=== PATIENT | female | born 2000 | race Caucasian/White ===

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

== ENCOUNTER 2019-10-08 14:41 | Outpatient (REF) | payer MEDICAID, SELFPAY ==
[2019-10-08 21:41] LABS: HCT 40.2 % (36.0-46.0); HGB 13.6 g/dL (12.0-15.5); Mean Corp. HGB Concentration 33.8 g/dL (32.0-36.0); Mean Corpuscular Hemoglobin 32.7 pg (27.0-33.0); Mean Corpuscular Volume 96.6 fL (80-95); Mean Platelet Volume 11.2 fL (8.0-11.0); Platelet Count 279 x1000/uL (130-400); RBC 4.16 m/cumm (4.00-5.20); RBC Distribution Width 12.1 % (11.7-14.6); White Blood Cell Count 5.67 k/cumm (4.4-10.8)
[2019-10-08 22:15] LABS: ALT 16 U/L (14-59); AST 15 U/L (15-37); Albumin 4.5 g/dL (3.4-5.0); Alkaline Phosphatase 73 U/L (46-116); Anion Gap 12.4 mmol/L (3-11); BUN 9 mg/dL (7-18); Bilirubin, Total 0.7 mg/dL (0.2-1.0); CO2 24.6 mmol/L (21.0-32.0); CREATININE 0.83 mg/dL (0.55-1.02); Calcium 9.6 mg/dL (8.5-10.1); Chloride 105 mmol/L (98-107); Glucose 79 mg/dL (74-106); Sodium 142 mmol/L (136-145); Total Protein 7.4 g/dL (6.4-8.2)
[2019-10-08 22:16] LABS: ESR 10 mm/hr (0-20)
[2019-10-10 09:08] LABS: Rheumatoid Factor <7.5 IU/mL (<12.5)
[2019-10-10 11:45] LABS: Cyclic Citrullinated Peptide <2.5 U/mL (<5.0)
== END 2019-10-08 15:01 ==
LOC: NCHCN 14:41
PROVIDERS: PCP Nurse Practitioner Family; Visit Provider Family Medicine
DX: Z82.61 Family history of arthritis (principal)
CPT/HCPCS: 80053; 85027; 85652; 86200; 86431

== ENCOUNTER 2020-07-28 18:16 | Outpatient (REF) | payer MEDICAID, SELFPAY ==
[2020-07-31 02:38] LABS: HSV 1 PCR, Varies Negative (Negative); HSV 2 PCR, Varies Negative (Negative); Herpes Source PERIANAL
== END 2020-07-28 18:36 ==
LOC: NCHCN 18:16
PROVIDERS: PCP Family Medicine; Visit Provider Family Medicine
DX: R21 Rash and other nonspecific skin eruption (principal); F41.1 Generalized anxiety disorder
CPT/HCPCS: 87529; 86695; 86696

== ENCOUNTER 2020-08-19 10:09 | Outpatient (REF) | payer MEDICAID, SELFPAY ==
--- NOTE | 2020-08-19 09:00 | PAPFT_PTH ---
PATIENT: Shira Cabrales LOC: [facility] U#:[id number] AGE/SX: 20/F ROOM: RE08/19/[address]: Nataly Davis : 2000 BED: DIS: 08/19/2020 SPEC #: [id number] RECD: 08/24/20 13:00 STATUS: ADRIAN RELoli #: [id number] SILAS: 08/19/20 09:[address]: Nataly Davis DEPT: [facility] Cytology RECD BY: Serena Carey Tissues: 1 - CX/ENDOCX FOR PAP SMEARS Procedures: PAP THIN PREP/[facility] Screening Comments: [id number] (CHLAMYDIA/GC)
[2020-08-25 15:09] LABS: Chlamydia Result Negative (Negative); GC Result Negative (Negative)
== END 2020-08-19 10:29 ==
LOC: NCHCN 10:09
PROVIDERS: PCP Family Medicine; Visit Provider Family Medicine
DX: Z11.3 Encounter for screening for infections with a predominantly sexual mode of transmission (principal); Z12.4 Encounter for screening for malignant neoplasm of cervix
CPT/HCPCS: 87491; 87591; 88142

== ENCOUNTER 2021-03-25 15:49 | Outpatient (REF) | payer OTHER, MEDICAID, SELFPAY | END 2021-03-25 15:50 | disposition home or self-care (01) | LOC: NCHCN 15:49 | PROVIDERS: PCP Family Medicine; Visit Provider Registered Nurse | DX: R35.0 Frequency of micturition (principal); A56.2 Chlamydial infection of genitourinary tract, unspecified | CPT/HCPCS: 87077; 87086; 87186; 87480; 87510; 87660 ==

== ENCOUNTER 2021-05-03 16:00 | Outpatient (REF) | payer OTHER, MEDICAID, SELFPAY ==
[2021-05-04 15:40] LABS: Chlamydia Result Negative (Negative); GC Result Negative (Negative)
== END 2021-05-03 16:01 | disposition home or self-care (01) ==
LOC: NCHCN 16:00
PROVIDERS: PCP Family Medicine; Visit Provider Family Medicine
DX: R31.9 Hematuria, unspecified (principal)
CPT/HCPCS: 87077; 87491; 87591; 87086; 87186

== ENCOUNTER 2021-06-10 17:01 | Outpatient (REF) | payer OTHER, SELFPAY ==
[2021-06-14 15:34] LABS: Chlamydia Result Negative (Negative); GC Result Negative (Negative)
== END 2021-06-10 17:02 | disposition home or self-care (01) ==
LOC: LBN 17:01
PROVIDERS: PCP Family Medicine; Visit Provider Nurse Practitioner Family
DX: R30.0 Dysuria (principal); Z11.3 Encounter for screening for infections with a predominantly sexual mode of transmission
CPT/HCPCS: 87077; 87491; 87591; 87086; 87186

== ENCOUNTER 2021-06-24 14:30 | Outpatient (REF) | payer OTHER, SELFPAY | END 2021-06-24 14:31 | disposition home or self-care (01) | LOC: LBN 14:30 | PROVIDERS: PCP Family Medicine; Visit Provider Nurse Practitioner Family | DX: N39.0 Urinary tract infection, site not specified (principal); R30.0 Dysuria | CPT/HCPCS: 87086 ==

== ENCOUNTER 2021-11-08 11:37 | Outpatient (REF) | payer MEDICAID, SELFPAY ==
--- NOTE | 2021-11-08 11:30 | PAPFT_PTH ---
PATIENT: Shira Cabrales LOC: [facility] U#:[id number] AGE/SX: 21/ ROOM: RE11/08/[address]: MARCO Mercado : 2000 BED: DIS: 11/08/2021 SPEC #: [id number] RECD: 11/08/21 18:17 STATUS: ADRIAN REQ #: [id number] SILAS: 11/08/21 11:[address]: Areli Dinero DEPT: [facility] Cytology RECD BY: Serena Carey ENTERED: 11/08/21 18:18 SP TYPE: PAPFT OTHR DR: Nataly Davis Tissues: 1 - CX/ENDOCX FOR PAP SMEARS Procedures: PAP THIN PREP/[facility] Screening Comments: [id number]
== END 2021-11-08 11:38 | disposition home or self-care (01) ==
LOC: LBN 11:37
PROVIDERS: PCP Family Medicine; Visit Provider Nurse Practitioner Family
DX: R30.0 Dysuria (principal); Z12.4 Encounter for screening for malignant neoplasm of cervix
CPT/HCPCS: 87077; 88142; 87086; 87186

== ENCOUNTER 2021-11-08 15:28 | Outpatient (REF) | payer MEDICAID, SELFPAY ==
--- OUTSIDE RECORDS SUMMARY | 2021-11-08 15:30 | XMS_ITS | CCD ---
:2000 Author Care Team Providers Name Role Phone Rosa M CHAMPION Attending Physician Unavailable Vital Signs Unknown or Not Available. Allergies Allergy Code Allergy Type Reaction Status No Known Allergies 0 No known allergies Act yrn Procedures Unknown or Not Available. History of Immunizations Unknown or Not Available. Problems Unknown or Not Available. Results [facility] COVID RHEONIX* - Collect Date/Maco e: 08/22/2021 07:50 Test Name Code Test Result Test Units Test Ref Range SOURCE= Anterior nasal N/A Tier- RANDOM STAFF N/A SARS COV2 RNA: 17314-2 NEGATIVE N/A REFERENCE RAN GE: NEGAT Active Medications Unknown or Not Available. Medications Administered During Visit Unknown or Not Available. Encounters Encounter Diagnosis Diagnosis Code Start Date CONTACT WITH AND SUSPECTED EXPOSURE TO COVID-19 [id number] 08/22/2021 Social History Smoking Status Code Start Date End Date Never smoker [id number] Patient Decision Aids Unknown or Not Available. Discharge Instructions You were admitted to [facility] on 08/22/2021 21:17 with a principal diagnosis of Contact with and (suspected ) exposure to COVID-19 You had the following tests done: [facility] COVID RHEONIX* You were discharged from [facility] on 08/22/2021 21:17 Should you have any questions prior to d ischarge, please contact a member of your healthcare team. If you have left the spital and have any questions, please contact your primary care physician. Chief Complaint and Reason For Visit Unknown or Not Available. Function Status Unknown or Not Available. Plan of Care Unknown or Not Available. Referral/Transition of Care Unknown or Not Available.
== END 2021-11-08 15:29 | disposition home or self-care (01) ==
LOC: LBN 15:28
PROVIDERS: PCP Family Medicine; Visit Provider Family Medicine

== ENCOUNTER 2022-01-19 14:56 | Outpatient (REF) | payer MEDICAID, SELFPAY ==
[2022-01-21 15:02] LABS: Chlamydia Result Negative (Negative); GC Result Negative (Negative)
== END 2022-01-19 14:57 | disposition home or self-care (01) ==
LOC: NCHCN 14:56
PROVIDERS: PCP Family Medicine; Visit Provider Internal Medicine
DX: Z11.3 Encounter for screening for infections with a predominantly sexual mode of transmission (principal)
CPT/HCPCS: 87491; 87591; 82043; 82570

== ENCOUNTER 2022-02-17 16:21 | Outpatient (REF) | payer MEDICAID, SELFPAY | END 2022-02-17 16:22 | disposition home or self-care (01) | LOC: LBN 16:21 | PROVIDERS: PCP Family Medicine; Visit Provider Nurse Practitioner Family | DX: R30.0 Dysuria (principal) | CPT/HCPCS: 87086 ==

== ENCOUNTER 2023-02-24 18:16 | Emergency (ER) | payer MEDICAID, SELFPAY ==
[2023-02-24 18:21] VITALS: BP 131/64; PULSE 85; RESP 16; TEMP 36.9; O2SAT 100
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
[2023-02-24 19:22] LABS: Abs Immature Grans 0.09 10^3/uL (0.0-0.06); Absolute Basophil Count 0.08 10^3/uL (0.0-0.2); Absolute Eosinophil Count 0.16 10^3/uL (0.0-0.7); Absolute Lymphocyte Count 2.49 10^3/uL (1.2-3.4); Absolute Monocyte Count 0.94 10^3/uL (0.1-0.8); Absolute Neutrophil Count 4.17 10^3/uL (1.2-6.7); HCT 36.5 % (36.0-46.0); HGB 12.5 g/dL (11.2-15.7); Immature Grans % 1.1; Lymphocytes % 31.4; MCHC 34.2 % (32.0-36.0); MCV 93 fL (80-95); MPV 9.6 fL (8.0-11.0); Monocytes % 11.9; Neutrophils % 52.6; Platelet Count 269 10^3/uL (130-400); RBC 3.91 10^6/uL (3.93-5.22); RDW 11.3 % (11.7-14.6); RDW-SD 38.4 fL; WBC 7.93 10^3/uL (4.4-10.8)
[2023-02-24 21:07] VITALS: BP 103/57
== END 2023-02-24 21:10 | disposition home or self-care (01) ==
PROVIDERS: Emergency Provider Nurse Practitioner Acute Care; PCP Family Medicine
DX: O99.341 Other mental disorders complicating pregnancy, first trimester (principal)
CPT/HCPCS: 86900; 86901; 99285; 84702; 85025

== ENCOUNTER 2023-03-21 10:07 | Outpatient (REF) | payer MEDICAID, SELFPAY ==
--- OUTSIDE RECORDS SUMMARY | 2023-03-22 10:07 | XMS_ITS | CCD ---
Author Name Unknown Address [address] [place] [address] [phone] Organization Unknown Address [address] [place] [address] [phone] Care Team Providers Care Fresh Work Wrapper Layer Name Role Phone VINCENZO CHAMPION Attending Physician [phone] Vital Signs Unknown or Not Available. Allergies Allergy Code Allergy Type Reaction Status No Known Allergies 0 No known allergies Active Procedures Unknown or Not Available. History of Immunizations Unknown or Not Available. Problems Unknown or Not Available. Results [facility] COVID RHEONIX* - Noreen ect Date/Time: 08/22/2021 07:50 Test Name Code Test Result Test Units Test Ref Rang e SOURCE= Anterior nasal N/A Tier- RANDOM STAFF N/A SARS COV2 RNA: 95034-0 NEGATIVE N/A REFERENCE RANGE: NEGAT Active Medications Unknown or Not Available. Medications Administered During Visit Unknown or Not Available. Encounters Encounter Diagnosis Diagnosis Code Start Date Exposure to SARS-CoV-2 [id number] Social History Smoking Status Code Start Date End Date Never smoker [id number] Patient Decision Aids Unknown or Not Available. Discharge Instructions You were admitted to [facility] on 08/22/2021 21:17 with a principal diagnosis of Contact with and (suspected) exposure to COVID-19 You had the following tests done:[facility] COVID RHEONIX* You were discharged from [facility] on 08/22/2021 21:17 Should you have any questions prior to discharge, please contact a member of your healthcare team. If you have left the hospital and have any questions, please contact your primary care physician. Chief Complaint and Reason For Visit Unknown or Not Available. Function Status Unknown or Not Available. Plan of Care Unknown or Not Available. Referral/Transition of Care Unknown or Not Available.
--- OUTSIDE RECORDS SUMMARY | 2023-03-22 10:07 | XMS_ITS | CCD ---
Author Name Unknown Address [address] [place] [address] [phone] Organization Unknown Address [address] [place] [address] [phone] Care Team Providers Care Staff Electronic Warfare Officer Name Role Phone VINCENZO CHAMPION Attending Physician [phone] Vital Signs Unknown or Not Available. Allergies Allergy Code Allergy Type Reaction Status No Known Allergies 0 No known allergies Active Procedures Unknown or Not Available. History of Immunizations Unknown or Not Available. Problems Unknown or Not Available. Results [facility] COVID RHEON[facility]* - Noreen ect Date/Time: 10/02/2021 15:30 Test Name Code Test Result Test Units Test Ref Rang e Tier- STAFF PRIORITY N/A SARS COV2 RNA: 31315-3 NEGATIVE N/A REFERENCE RANGE: NEGAT Active Medications Unknown or Not Available. Medications Administered During Visit Unknown or Not Available. Encounters Encounter Diagnosis Diagnosis Code Start Date Exposure to SARS-CoV-2 [id number] Social History Smoking Status Code Start Date End Date Never smoker [id number] Patient Decision Aids Unknown or Not Available. Discharge Instructions You were admitted to [facility] on 10/02/2021 08:42 with a principal diagnosis of Contact with and (suspected) exposure to COVID-19 You had the following tests done:[facility] COVID RHEONIX* You were discharged from [facility] on 10/02/2021 08:42 Should you have any questions prior to [...]
--- OUTSIDE RECORDS SUMMARY | 2023-03-22 10:07 | XMS_ITS | CCD ---
Author Name Unknown Address [address] [place] [address] [phone] Organization Unknown Address [address] [place] [address] [phone] Care Team Providers Care Plywood Layup Line Back Feeder Name Role Phone VINCENZO CHAMPION Attending Physician [phone] Vital Signs Unknown or Not Available. Allergies Allergy Code Allergy Type Reaction Status No Known Allergies 0 No known allergies Active Procedures Unknown or Not Available. History of Immunizations Unknown or Not Available. Problems Unknown or Not Available. Results [facility] RHE[facility]* - Noreen ect Date/Time: 09/30/2021 11:54 Test Name Code Test Result Test Units Test Ref Rang e Tier- STAFF PRIORITY N/A SARS COV2 RNA: 99803-4 NEGATIVE N/A REFERENCE RANGE: NEGAT Active Medications Unknown or Not Available. Medications Administered During Visit Unknown or Not Available. Encounters Encounter Diagnosis Diagnosis Code Start Date Exposure to SARS-CoV-2 [id number] Social History Smoking Status Code Start Date End Date Never smoker [id number] Patient Decision Aids Unknown or Not Available. Discharge Instructions You were admitted to [facility] on 09/30/2021 16:09 with a principal diagnosis of Contact with and (suspected) exposure to COVID-19 You had the following tests done:[facility] RHEONIX* You were discharged from [facility] on 09/30/2021 16:09 Should you have any questions prior to [...]
--- OUTSIDE RECORDS SUMMARY | 2023-03-22 10:07 | XMS_ITS | CCD ---
Author Name Unknown Address [address] [place] [address] [phone] Organization Unknown Address [address] [place] [address] [phone] Care Team Providers Care Glue Sprayer Name Role Phone VINCENZO CHAMPION Attending Physician [phone] Vital Signs Unknown or Not Available. Allergies Allergy Code Allergy Type Reaction Status No Known Allergies 0 No known allergies Active Procedures Unknown or Not Available. History of Immunizations Unknown or Not Available. Problems Unknown or Not Available. Results [facility] COVID RHEONIX* - Noreen ect Date/Time: 11/12/2021 09:48 Test Name Code Test Result Test Units Test Ref Rang e [facility]- 16081-2 STAFF PRIORITY N/A SARS COV2 RNA: 38227-0 NEGATIVE N/A REFERENCE RANGE: NEGAT Active Medications Unknown or Not Available. Medications Administered During Visit Unknown or Not Available. Encounters Encounter Diagnosis Diagnosis Code Start Date CONTACT WITH AND SUSPECTED EXPOSURE TO COVID-19 D13247 11/12/2021 Social History Smoking Status Code Start Date End Date Never smoker [id number] Patient Decision Aids Unknown or Not Available. Discharge Instructions You were admitted to [facility] on 11/12/2021 10:24 with a principal diagnosis of Contact with and (suspected) exposure to COVID-19 You had the following tests done:[facility] COVID RHEONIX* You were discharged from [facility] on 11/12/2021 10:24 Should you have any questions prior to [...]
--- OUTSIDE RECORDS SUMMARY | 2023-03-22 10:08 | XMS_ITS | CCD ---
Author Name Unknown Address [address] [place] [address] [phone] Organization Unknown Address [address] [place] [address] [phone] Care Team Providers Care Sales Utility Representative Name Role Phone VINCENZO CHAMPION Attending Physician [phone] Vital Signs Unknown or Not Available. Allergies Allergy Code Allergy Type Reaction Status No Known Allergies 0 No known allergies Active Procedures Unknown or Not Available. History of Immunizations Unknown or Not Available. Problems Unknown or Not Available. Results [facility] COVID RHEONIX* - Noreen ect Date/Time: 12/29/2021 11:00 Test Name Code Test Result Test Units Test Ref Rang e Tier- 90959-4 STAFF EXPOSURE N/A SARS COV2 RNA: 42720-9 NEGATIVE N/A REFERENCE RANGE: NEGAT Active Medications Unknown or Not Available. Medications Administered During Visit Unknown or Not Available. Encounters Encounter Diagnosis Diagnosis Code Start Date Exposure to SARS-CoV-2 [id number] Social History Smoking Status Code Start Date End Date Never smoker [id number] Patient Decision Aids Unknown or Not Available. Discharge Instructions You were admitted to [facility] on 12/29/2021 08:45 with a principal diagnosis of Contact with and (suspected) exposure to COVID-19 You had the following tests done:[facility] RHEONIX* You were discharged from [facility] on 12/29/2021 08:45 Should you have any questions prior to [...]
--- OUTSIDE RECORDS SUMMARY | 2023-03-22 10:08 | XMS_ITS | CCD ---
Author Name Unknown Address [address] [place] [address] [phone] Organization Unknown Address [address] [place] [address] [phone] Care Team Providers Care Sports Official Name Role Phone VINCENZO CHAMPION Attending Physician [phone] Vital Signs Unknown or Not Available. Allergies Allergy Code Allergy Type Reaction Status No Known Allergies 0 No known allergies Active Procedures Unknown or Not Available. History of Immunizations Unknown or Not Available. Problems Unknown or Not Available. Results [facility] COVID RHEONIX* - Noreen ect Date/Time: 01/04/2022 11:03 Test Name Code Test Result Test Units Test Ref Rang e [facility]- 21796-2 STAFF PRIORITY N/A SARS COV2 RNA: 69412-8 POSITIVE N/A REFERENCE RANGE: NEGAT Active Medications Unknown or Not Available. Medications Administered During Visit Unknown or Not Available. Encounters Encounter Diagnosis Diagnosis Code Start Date COVID-19 [id number] 01/04/2022 Social History Smoking Status Code Start Date End Date Never smoker [id number] Patient Decision Aids Unknown or Not Available. Discharge Instructions You were admitted to [facility] on 01/04/2022 16:43 with a principal diagnosis of COVID-19 You had the following tests done:[facility] COVID RHEONIX* You were discharged from [facility] on 01/04/2022 16:43 Should you have any questions prior to [...]
--- OUTSIDE RECORDS SUMMARY | 2023-03-22 10:08 | XMS_ITS | CCD ---
Author Name Unknown Address [address] [place] [address] [phone] Organization Unknown Address [address] [place] [address] [phone] Care Team Providers Care Seismograph Chief Name Role Phone MARIA ELENA HOLBROOK Attending Physician [phone] Vital Signs Unknown or Not Available. Allergies Allergy Code Allergy Type Reaction Status No Known Allergies 0 No known allergies Active Procedures Unknown or Not Available. History of Immunizations Unknown or Not Available. Problems Unknown or Not Available. Results HCG QUANTITATIVE WHOLE MOLEC ULE* - Collect Date/Time: 01/10/2023 14:08 Test Name Code Test Result Test Units Test Ref Rang e HCG, total+Beta subs 22200-1 12 N/A Active Medications Unknown or Not Available. Medications Administered During Visit Unknown or Not Available. Encounters Encounter Diagnosis Diagnosis Code Start Date [id number] 01/10/2023 Social History Smoking Status Code Start Date End Date Never smoker [id number] Patient Decision Aids Unknown or Not Available. Discharge Instructions You were admitted to [facility] on 01/10/2023 19:50 with a principal diagnosis of state, incidental You had the following tests done:HCG QUANTITATIVE WHOLE MOLECULE* You were discharged from [facility] on 01/10/2023 19:50 Should you have any questions prior to [...]
--- OUTSIDE RECORDS SUMMARY | 2023-03-22 10:09 | XMS_ITS | CCD ---
Author Name Unknown Address [address] [place] [address] [phone] Organization Unknown Address [address] [place] [address] [phone] Care Team Providers Care Electrical System Specialist Name Role Phone ARACELI CARROLL Attending Physician [phone] Vital Signs Unknown or Not Available. Allergies Allergy Code Allergy Type Reaction Status No Known Allergies 0 No known allergies Active Procedures Unknown or Not Available. History of Immunizations Unknown or Not Available. Problems Unknown or Not Available. Results TEST QUAL (URINE) - Collect Date/Time: 02/14/2023 14:00 Test Name Code Test Result Test Units Test Ref Rang e TEST 2105-11 POSITIVE N/A Active Medications Unknown or Not Available. Medications Administered During Visit Unknown or Not Available. Encounters Encounter Diagnosis Diagnosis Code Start Date detection examination [id number] 02/14/2023 Social History Smoking Status Code Start Date End Date Never smoker [id number] Patient Decision Aids Unknown or Not Available. Discharge Instructions You were admitted to [facility] on 02/14/2023 13:55 with a principal diagnosis of Encounter for test, result unknown You had the following tests done: TEST QUAL (URINE) You were discharged from [facility] on 02/14/2023 13:55 Should you have any questions prior to [...]
== END 2023-03-21 10:08 | disposition home or self-care (01) ==
LOC: LBN 10:07
PROVIDERS: PCP Family Medicine; Visit Provider Otolaryngology
DX: H66.001 Acute suppurative otitis media without spontaneous rupture of ear drum, right ear (principal); H72.91 Unspecified perforation of tympanic membrane, right ear
CPT/HCPCS: 87077; 87070; 87186

== ENCOUNTER 2023-04-05 02:40 | Outpatient (CLI) | payer MEDICAID, SELFPAY ==
[2023-04-05 14:20] LABS: Panorama Kit Sent via Fed Ex
[2023-04-05 14:26] LABS: Abs Immature Grans 0.08 10^3/uL (0.0-0.06); Absolute Basophil Count 0.06 10^3/uL (0.0-0.2); Absolute Lymphocyte Count 2.35 10^3/uL (1.2-3.4); Absolute Monocyte Count 1.09 10^3/uL (0.1-0.8); Absolute Neutrophil Count 5.55 10^3/uL (1.2-6.7); Basophils % 0.6; Eosinophils % 2.1; HCT 35.7 % (36.0-46.0); HGB 12.5 g/dL (11.2-15.7); Immature Grans % 0.9; Lymphocytes % 25.2; MCH 32.6 pg (27.0-33.0); MCV 93 fL (80-95); MPV 10.2 fL (8.0-11.0); Monocytes % 11.7; Neutrophils % 59.5; Platelet Count 225 10^3/uL (130-400); RBC 3.83 10^6/uL (3.93-5.22); RDW-SD 40.8 fL; WBC 9.33 10^3/uL (4.4-10.8)
[2023-04-05 14:55] LABS: TSH (W/Ref FT4) 0.18 uIU/mL (0.36-3.74)
[2023-04-05 15:14] LABS: FREE T4 1.25 ng/dL (0.76-1.46)
[2023-04-06 10:22] LABS: Varicella IgG Antibody Positive (See Note)
[2023-04-06 10:25] LABS: Rubella IgG Ab (UVM) Positive (See Note)
[2023-04-06 12:40] LABS: Hepatitis C Ab w Rflx HCV PCR Negative (Negative)
[2023-04-06 13:06] LABS: HIV-1/2 Ag & Ab Screen Negative (Negative)
[2023-04-06 13:57] LABS: Hepatitis B Surface Ag Negative (Negative)
[2023-04-07 14:36] LABS: Syphilis IgG w/Reflex Nonreactive (Nonreactive)
[2023-04-24 18:54] LABS: Result Summary NEGATIVE; Specimen WB Whole Blood
== END 2023-04-05 02:41 | disposition home or self-care (01) ==
LOC: LBO 02:41
PROVIDERS: PCP Family Medicine; Visit Provider Advanced Practice Midwife
DX: Z34.01 Encounter for supervision of normal first pregnancy, first trimester (principal)
CPT/HCPCS: 36415; 81220; 81222; 86787; 86803; 86850; 86900; 86901; 87340; 87389; 84439; 84443; 85025; 86762; 86780

== ENCOUNTER 2023-04-05 15:24 | Outpatient (REF) | payer MEDICAID, SELFPAY ==
[2023-04-05 17:52] LABS: *AMPHETAMINES SCREEN URINE Negative (Negative); *BARBITURATES SCREEN URINE Negative (Negative); *BENZODIAZEPINES SCREEN URINE Negative (Negative); Cannabinoids THC Negative (Negative); Cocaine Screen,Urine Negative (Negative); METHADONE URINE SCREEN Negative (Negative); OPIATES URINE SCREEN Negative (Negative)
[2023-04-05 17:53] LABS: Tricyclic Antidepressants Negative (Negative)
[2023-04-14 18:01] LABS: Buprenorphine Negative ng/mL (Cutoff: 5.0); Norbuprenorphine Negative ng/mL (Cutoff: 2.5)
== END 2023-04-05 15:25 | disposition home or self-care (01) ==
LOC: LBN 15:24
PROVIDERS: PCP Family Medicine; Visit Provider Advanced Practice Midwife
DX: Z34.91 Encounter for supervision of normal pregnancy, unspecified, first trimester (principal)
CPT/HCPCS: 80307; 80348; 87086

== ENCOUNTER → 2023-05-19 00:24 | Outpatient (CLI) | payer MEDICAID, SELFPAY ==
--- OUTSIDE RECORDS SUMMARY | 2023-05-19 00:32 | XMS_ITS | CCD ---
Author Name Unknown Address [address] [place] [address] [phone] Organization Unknown Address [address] [place] [address] [phone] Care Team Providers Care Tax Evaluator Name Role Phone VINCENZO CHAMPION Attending Physician [phone] Vital Signs Unknown or Not Available. Allergies Allergy Code Allergy Type Reaction Status No Known Allergies 0 No known allergies Active Procedures Unknown or Not Available. History of Immunizations Unknown or Not Available. Problems Unknown or Not Available. Results [facility] COVID RHEONIX* - Noreen ect Date/Time: 11/15/2021 10:45 Test Name Code Test Result Test Units Test Ref Rang e Tier- 34813-4 STAFF PRIORITY N/A SARS COV2 RNA: 25379-9 NEGATIVE N/A REFERENCE RANGE: NEGAT Active Medications Unknown or Not Available. Medications Administered During Visit Unknown or Not Available. Encounters Encounter Diagnosis Diagnosis Code Start Date Exposure to SARS-CoV-2 [id number] Social History Smoking Status Code Start Date End Date Never smoker [id number] Patient Decision Aids Unknown or Not Available. Discharge Instructions You were admitted to [facility] on 11/15/2021 19:27 with a principal diagnosis of Contact with and (suspected) exposure to COVID-19 You had the following tests done:[facility] COVID RHEONIX* You were discharged from [facility] on 11/15/2021 19:27 Should you have any questions prior to [...]
--- OUTSIDE RECORDS SUMMARY | 2023-05-19 00:32 | XMS_ITS | CCD ---
Author Name Unknown Address [address] [place] [address] [phone] Organization Unknown Address [address] [place] [address] [phone] Care Team Providers Care Support Services Tech Name Role Phone VINCENZO CHAMPION Attending Physician [phone] Vital Signs Unknown or Not Available. Allergies Allergy Code Allergy Type Reaction Status No Known Allergies 0 No known allergies Active Procedures Unknown or Not Available. History of Immunizations Unknown or Not Available. Problems Unknown or Not Available. Results [facility] COVID RHEONIX* - Noreen ect Date/Time: 11/12/2021 09:48 Test Name Code Test Result Test Units Test Ref Rang e [facility]- 37066-9 STAFF PRIORITY N/A SARS COV2 RNA: 82914-8 NEGATIVE N/A REFERENCE RANGE: NEGAT Active Medications Unknown or Not Available. Medications Administered During Visit Unknown or Not Available. Encounters Encounter Diagnosis Diagnosis Code Start Date CONTACT WITH AND SUSPECTED EXPOSURE TO COVID-19 [id number] 11/12/2021 Social History Smoking Status Code Start Date End Date Never smoker [id number] Patient Decision Aids Unknown or Not Available. Discharge Instructions You were admitted to [facility] on 11/12/2021 10:24 with a principal diagnosis of Contact with and (suspected) exposure to COVID-19 You had the following tests done:[facility]OTT COVID RHEONIX* You were discharged from [facility] on 11/12/2021 10:24 Should you [...]
--- OUTSIDE RECORDS SUMMARY | 2023-05-19 00:32 | XMS_ITS | CCD ---
Author Name Unknown Address [address] [place] [address] [phone] Organization Unknown Address [address] [place] [address] [phone] Care Team Providers Care Equipment Scheduler Name Role Phone VINCENZO CHAMPION Attending Physician [phone] Vital Signs Unknown or Not Available. Allergies [...] Tier- RANDOM STAFF N/A SARS COV2 RNA: 27647-4 NEGATIVE N/A REFERENCE RANGE: NEGAT Active Medications Unknown or Not Available. Medications Administered During Visit Unknown or Not Available. Encounters Encounter Diagnosis Diagnosis Code Start Date Exposure to SARS-CoV-2 [id number] Social History Smoking Status Code Start Date End Date Never smoker [id number] Patient Decision Aids Unknown or Not Available. Discharge Instructions You were admitted to [facility] on 08/22/2021 21:17 with a principal diagnosis of Contact with and (suspected) exposure to COVID-19 You had the following tests done:[facility]OTT COVID RHEONIX* You were discharged from [facility] on 08/22/2021 21:17 Should you have [...]
--- OUTSIDE RECORDS SUMMARY | 2023-05-19 00:32 | XMS_ITS | CCD ---
Author Name Unknown Address [address] [place] [address] [phone] Organization Unknown Address [address] [place] [address] [phone] Care Team Providers Care Security Project Manager Name Role Phone VINCENZO CHAMPION Attending Physician [phone] Vital Signs Unknown or Not Available. Allergies [...] Tier- STAFF PRIORITY N/A SARS COV2 RNA: 39465-8 NEGATIVE N/A REFERENCE RANGE: NEGAT Active Medications Unknown or Not Available. Medications Administered During Visit Unknown or Not Available. Encounters Encounter Diagnosis Diagnosis Code Start Date Exposure to SARS-CoV-2 [id number] Social History Smoking Status Code Start Date End Date Never smoker [id number] Patient Decision Aids Unknown or Not Available. Discharge Instructions You were admitted to [facility] on 09/30/2021 16:09 with a principal diagnosis of Contact with and (suspected) exposure to COVID-19 You had the following tests done:E[facility]IOTT COVID RHEONIX* You were discharged from [facility] on 09/30/2021 16:09 Should you [...]
--- OUTSIDE RECORDS SUMMARY | 2023-05-19 00:33 | XMS_ITS | CCD ---
Author Name Unknown Address [address] [place] [address] [phone] Organization Unknown Address [address] [place] [address] [phone] Care Team Providers Care Cloud Subject Matter Expert Name Role Phone VINCENZO CHAMPION Attending Physician [phone] Vital Signs Unknown or Not Available. Allergies Allergy Code Allergy Type Reaction Status No Known Allergies 0 No known allergies Active Procedures Unknown or Not Available. History of Immunizations Unknown or Not Available. Problems Unknown or Not Available. Results [facility] COVID RHEONIX* - Noreen ect Date/Time: 12/29/2021 11:00 Test Name Code Test Result Test Units Test Ref Rang e Tier- 94656-7 STAFF EXPOSURE N/A SARS COV2 RNA: 08077-8 NEGATIVE N/A REFERENCE RANGE: NEGAT Active Medications Unknown or Not Available. Medications Administered During Visit Unknown or Not Available. Encounters Encounter Diagnosis Diagnosis Code Start Date Exposure to SARS-CoV-2 766473100 Social History Smoking Status Code Start Date End Date Never smoker 891032375 Patient Decision Aids Unknown or Not Available. Discharge Instructions You were admitted to [facility] on 12/29/2021 08:45 with a principal diagnosis of Contact with and (suspected) exposure to COVID-19 You had the following tests done:ELLIOTT COVID RHEONIX* You were discharged from [facility] on 12/29/2021 08:45 Should you have [...]
--- OUTSIDE RECORDS SUMMARY | 2023-05-19 00:33 | XMS_ITS | CCD ---
Author Name Unknown Address [address] [place] [address] [phone] Organization Unknown Address [address] [place] [address] [phone] Care Team Providers Care Teacher Private Name Role Phone VINCENZO CHAMPION Attending Physician [phone] Vital Signs Unknown or Not Available. Allergies Allergy Code Allergy Type Reaction Status No Known Allergies 0 No known allergies Active Procedures Unknown or Not Available. History of Immunizations Unknown or Not Available. Problems Unknown or Not Available. Results [facility] COVID RHEONIX* - Noreen ect Date/Time: 01/04/2022 11:03 Test Name Code Test Result Test Units Test Ref Rang e [facility]- 94074-7 STAFF PRIORITY N/A SARS COV2 RNA: 83572-2 POSITIVE N/A REFERENCE RANGE: NEGAT Active Medications Unknown or Not Available. Medications Administered During Visit Unknown or Not Available. Encounters Encounter Diagnosis Diagnosis Code Start Date COVID-19 [id number] 01/04/2022 Social History Smoking Status Code Start Date End Date Never smoker 021202995 Patient Decision Aids Unknown or Not Available. Discharge Instructions You were admitted to [facility] on 01/04/2022 16:43 with a principal diagnosis of COVID-19 You had the following tests done:E[facility]IOTT COVID RHEONIX* You were discharged from [facility] on 01/04/2022 16:43 Should you have [...]
--- OUTSIDE RECORDS SUMMARY | 2023-05-19 00:33 | XMS_ITS | CCD ---
Author Name Unknown Address [address] [place] [address] [phone] Organization Unknown Address [address] [place] [address] [phone] Care Team Providers Care Combination Machine Tender Name Role Phone SHERON MARIA ELENA Rosa M Attending Physician [phone] Vital Signs Unknown or Not Available. Allergies Allergy Code Allergy Type Reaction Status No Known Allergies 0 No known allergies Active Procedures Unknown or Not Available. History of Immunizations Unknown or Not Available. Problems Unknown or Not Available. Results CULT URINE CULTURE* - Colle t Date/Time: 11/03/2022 14:35 Test Name Code Test Result Test Units Test Ref Rang e COLLECTION MODE: 39164-5 CLEAN CATCH N/A URINALYSIS WITH REFLEX CULT IF POSITIVE* - Collect Date/Time: 11/03/2022 14:35 Test Name Code Test Result Test Units Test Ref Rang e COLLECTION MODE: 16713-6 CLEAN CATCH N/A Color 5778-6 YELLOW N/A yellow Appearance 5767-9 CLEAR N/A clear Glucose urine 00923-0 NEGATIVE N/A negative mg /dl Bilirubin 5770-3 NEGATIVE N/A negative Ketones 2514-8 NEGATIVE N/A negative mg/dl Spec gravity 5811-5 >=1.030 N/A 1.003 - 1.03 0 pH urine 2756-5 6.0 N/A 5.0 - 7.0 Protein 96728-3 NEGATIVE N/A negative mg/dl Urobilinogen 57563-4 0.2 N/A <or= 1 EU/dl Nitrite. 5802-4 NEGATIVE N/A negative Blood 5794-3 NEGATIVE N/A negative Leukocytes. TRACE N/A negative MICROSCOPIC INDICATED N/A WBCs. 25469-0 5-10 N/A 0-5 / hpf RBCs 77074-7 none N/A 0-5 / hpf Epith cells 23060-1 5-10 N/A 0-5 / hpf Cell types squamous N/A Crystals none N/A none Bacteria none N/A none Mucus 8247-9 present N/A none Casts 20713-8 none N/A none /lpf Active Medications Unknown or Not Available. Medications Administered During Visit Unknown or Not Available. Encounters Encounter Diagnosis Diagnosis Code Start Date Personal history [place] [address] 11/03/2022 Social History Smoking Status Code Start Date End Date Never smoker [id number] Patient Decision Aids Unknown or Not Available. Discharge Instructions You were admitted to [facility] on 11/03/2022 14:44 with a principal diagnosis of Personal history of urinary (tract) infections You had the following tests done:CULT URINE CULTURE*URINALYSIS WITH REFLEX CULT IF POSITIVE* You were discharged from [facility] on 11/03/2022 14:44 Should you have any questions prior to [...]
--- OUTSIDE RECORDS SUMMARY | 2023-05-19 00:33 | XMS_ITS | CCD ---
Author Name Unknown Address [address] [place] [address] [phone] Organization Unknown Address [address] [place] [address] [phone] Care Team Providers Care Economic Specialist Name Role Phone ARACELI CARROLL Attending Physician [phone] Vital Signs Unknown or Not Available. [...] Diagnosis Diagnosis Code Start Date detection examination [id number] 02/14/2023 Social History Smoking Status Code Start Date End Date Never smoker 105290061 Patient Decision Aids Unknown or Not Available. Discharge Instructions You were admitted to [facility] on 02/14/2023 13:55 with a principal diagnosis of Encounter for test, result unknown You had the following tests done: TEST QUAL (URINE) You were discharged from [facility] on 02/14/2023 13:55 Should [...]
--- OUTSIDE RECORDS SUMMARY | 2023-05-19 00:33 | XMS_ITS | CCD ---
Author Name Unknown Address [address] [place] [address] [phone] Organization Unknown Address [address] [place] [address] [phone] Care Team Providers Care Flakeboard Line Tender Name Role Phone MARIA ELENA HOLBROOK Attending Physician [phone] Vital Signs Unknown or Not Available. Allergies Allergy Code Allergy Type Reaction Status No Known Allergies 0 No known allergies Active Procedures Unknown or Not Available. History of Immunizations Unknown or Not Available. Problems Unknown or Not Available. Results Unknown or Not Available. Active Medications Unknown or Not Available. Medications Administered During Visit Unknown or Not Available. Encounters Encounter Diagnosis Diagnosis Code Start Date Other specified re lated conditions, second trimester [id number] 04/07/2023 Social History Smoking Status Code Start Date End Date Never smoker [id number] Patient Decision Aids Unknown or Not Available. Discharge Instructions You were admitted to [facility] on 04/07/2023 09:08 with a principal diagnosis of Other specified related conditions, second trimester You were discharged from [facility] Should you have any questions prior to [...]
--- NOTE | 2023-05-19 06:15 | DI.US_ITS ---
Exam(s) US OB 2-3 TRIMESTER EXAM: US OB 2-3 TRIMESTER CLINICAL HISTORY: 18 week anatomy survey,Z34.90. TECHNIQUE: Transabdominal obstetrical ultrasound performed. COMPARISON: No exams were available for comparison FINDINGS: Number of fetuses: 1 position: VARIED heart rate: 146bpm Placental location: There is a grade 0 anterior placenta. The placental tip is 4.6 cm from the inter nal os. No evidence of previa. Amniotic fluid index: Amount of fluid is within normal limits. ANATOMICAL SURVEY: Within normal limits. BIOMETRIC DATA: BPD: 4.33cm, 19weeks 1day HC: 16.79cm, 19weeks 3days AC: 13.02cm, 18weeks 4days FL: 2.9cm, 18weeks 6days Cisterna magna: 5.1mm Cerebellum: 1.88cm Lateral ventricles: 6 mm. EFW: 258.43g, 0.57lb, 76.9% Composite Age: 19weeks AMADOR: 10/13/2023 Heart Rate: 146bpm ANATOMICAL SURVEY: Four-chambered heart: Unremarkable. RVOT: Unremarkable. LVOT: Unremarkable. Left-sided stomach: Unremarkable. urinary bladder: Unremarkable. Bilateral kidneys: Unremarkable. Three-vessel cord: Unremarkable. Cord insertion: Unremarkable. Posterior fossa: Unremarkable. ventricles: Unremarkable. nose/lips: Unremarkable. Palate: Unremarkable. spine: Unremarkable. Two arms and two legs: Unremarkable. IMPRESSION: 1. Single live intrauterine gestation as above. 2. Normal anatomic survey. DATA REPOSITORY:
[2023-06-22 15:09] VITALS: BP 135/73; PULSE 85; RESP 16; TEMP 36.7; O2SAT 99
== END ==
PROVIDERS: PCP Family Medicine; Visit Provider Advanced Practice Midwife
DX: Z34.91 Encounter for supervision of normal pregnancy, unspecified, first trimester (principal)
CPT/HCPCS: 76805

== ENCOUNTER 2023-06-16 16:13 | Outpatient (CLI) | payer MEDICAID, SELFPAY ==
[2023-06-16 16:43] LABS: HCT 32.7 % (36.0-46.0); HGB 11.3 g/dL (11.2-15.7); MCH 32.8 pg (27.0-33.0); MCHC 34.6 % (32.0-36.0); MCV 95 fL (80-95); MPV 9.8 fL (8.0-11.0); Platelet Count 228 10^3/uL (130-400); RBC 3.44 10^6/uL (3.93-5.22); RDW-SD 44.9 fL; WBC 9.53 10^3/uL (4.4-10.8)
[2023-06-16 16:50] VITALS: BP 120/65; PULSE 83
[2023-06-16 17:01] LABS: ALT 21 U/L (14-59); AST 18 U/L (15-37); Albumin 3.1 g/dL (3.4-5.0); Alkaline Phosphatase 73 U/L (46-116); Anion Gap 10.2 mmol/L (3-11); BUN 8 mg/dL (7-18); Bilirubin, Total 0.3 mg/dL (0.2-1.0); CO2 22.8 mmol/L (21.0-32.0); CREATININE 0.6 mg/dL (0.55-1.02); Chloride 103 mmol/L (98-107); Estimated GFR 128.46 (mL/min/1.73m2); Glucose 94 mg/dL (74-106); Potassium 3.4 mmol/L (3.5-5.1); Sodium 136 mmol/L (136-145)
[2023-06-16 17:03] LABS: COMMENT (LAB VIEW ONLY) 61.49 mg/dL; Prot/Crea Ur Ratio 0.09
== END 2023-06-16 17:05 | disposition home or self-care (01) ==
LOC: BCD 16:16 → OBS 16:22
PROVIDERS: PCP Family Medicine; Visit Provider Advanced Practice Midwife
DX: R03.0 Elevated blood-pressure reading, without diagnosis of hypertension (principal); Z34.92 Encounter for supervision of normal pregnancy, unspecified, second trimester
CPT/HCPCS: 80053; 85027; 99211; 82565; 84156

== ENCOUNTER 2023-07-26 16:04 | Outpatient (CLI) | payer MEDICAID, SELFPAY ==
--- OUTSIDE RECORDS SUMMARY | 2023-07-26 16:07 | XMS_ITS | CCD ---
Author Name Unknown Address [address] [place] [address] [phone] Organization Unknown Address [address] [place] [address] [phone] Care Team Providers Care Renewable Energy Project Manager Name Role Phone MARIA ELENA HOLBROOK Attending Physician [phone] Vital Signs Unknown or Not Available. Allergies Allergy Code Allergy Type Reaction Status No Known Allergies 0 No known allergies Active Procedures Unknown or Not Available. History of Immunizations Unknown or Not Available. Problems Unknown or Not Available. Results HCG QUANTITATIVE WHOLE MOLEC ULE* - Collect Date/Time: 01/10/2023 14:08 Test Name Code Test Result Test Units Test Ref Rang e HCG, total+Beta subs 96417-8 12 N/A Active Medications Unknown or Not Available. Medications Administered During Visit Unknown or Not Available. Encounters Encounter Diagnosis Diagnosis Code Start Date [id number] 01/10/2023 Social History Smoking Status Code Start Date End Date Never smoker 103930961 Patient Decision Aids Unknown or Not Available. Discharge Instructions You were admitted to [facility] on 01/10/2023 19:50 with a principal diagnosis of state, incidental You had the following tests done:HCG QUANTITATIVE WHOLE MOLECULE* You were discharged from [facility] on 01/10/2023 19:50 Should you have [...]
--- OUTSIDE RECORDS SUMMARY | 2023-07-26 16:08 | XMS_ITS | CCD ---
Author Name Unknown Address [address] [place] [address] [phone] Organization Unknown Address [address] [place] [address] [phone] Care Team Providers Care Film Editor Name Role Phone VINCENZO CHAMPION Attending Physician [phone] Vital Signs Unknown or Not Available. Allergies Allergy Code Allergy Type Reaction Status No Known Allergies 0 No known allergies Active Procedures Unknown or Not Available. History of Immunizations Unknown or Not Available. Problems Unknown or Not Available. Results [facility] COVID RHEONIX* - Noreen ect Date/Time: 12/29/2021 11:00 Test Name Code Test Result Test Units Test Ref Rang e Tier- 53747-5 STAFF EXPOSURE N/A SARS COV2 RNA: 30355-6 NEGATIVE N/A REFERENCE RANGE: NEGAT Active Medications Unknown or Not Available. Medications Administered During Visit Unknown or Not Available. Encounters Encounter Diagnosis Diagnosis Code Start Date Exposure to SARS-CoV-2 249810013 Social History Smoking Status Code Start Date End Date Never smoker 015487432 Patient Decision Aids Unknown or Not Available. Discharge Instructions You were admitted to [facility] on 12/29/2021 08:45 with a principal diagnosis of Contact with and (suspected) exposure to COVID-19 You had the following tests done:ELLIOTT COVID RHEONIX* You were discharged from [facility] on 12/29/2021 08:45 Should you have any [...]
--- OUTSIDE RECORDS SUMMARY | 2023-07-26 16:08 | XMS_ITS | CCD ---
Author Name Unknown Address [address] [place] [address] [phone] Organization Unknown Address [address] [place] [address] [phone] Care Team Providers Care Attacher Name Role Phone VINCENZO CHAMPION Attending Physician [phone] Vital Signs Unknown or Not Available. Allergies Allergy Code Allergy Type Reaction Status No Known Allergies 0 No known allergies Active Procedures Unknown or Not Available. History of Immunizations Unknown or Not Available. Problems Unknown or Not Available. Results [facility] COVID RHEONIX* - Noreen ect Date/Time: 01/04/2022 11:03 Test Name Code Test Result Test Units Test Ref Rang e [facility]- 13147-0 STAFF PRIORITY N/A SARS COV2 RNA: 77802-7 POSITIVE N/A REFERENCE RANGE: NEGAT Active Medications Unknown or Not Available. Medications Administered During Visit Unknown or Not Available. Encounters Encounter Diagnosis Diagnosis Code Start Date COVID-19 405662686 01/04/2022 Social History Smoking Status Code Start Date End Date Never smoker 737494654 Patient Decision Aids Unknown or Not Available. Discharge Instructions You were admitted to [facility] on 01/04/2022 16:43 with a principal diagnosis of COVID-19 You had the following tests done:ELLIOTT COVID RHEONIX* You were discharged from [facility] on 01/04/2022 16:43 Should you have [...]
--- OUTSIDE RECORDS SUMMARY | 2023-07-26 16:08 | XMS_ITS | CCD ---
Author Name Unknown Address [address] [place] [address] [phone] Organization Unknown Address [address] [place] [address] [phone] Care Team Providers Care Scientific Publications Editor Name Role Phone VINCENZO CHAMPION Attending Physician [phone] Vital Signs Unknown or Not Available. Allergies Allergy Code Allergy Type Reaction Status No Known Allergies 0 No known allergies Active Procedures Unknown or Not Available. History of Immunizations Unknown or Not Available. Problems Unknown or Not Available. Results [facility] COVID RHEONIX* - Noreen ect Date/Time: 11/12/2021 09:48 Test Name Code Test Result Test Units Test Ref Rang e [facility]- 67852-0 STAFF PRIORITY N/A SARS COV2 RNA: 37292-2 NEGATIVE N/A REFERENCE RANGE: NEGAT Active Medications Unknown or Not Available. Medications Administered During Visit Unknown or Not Available. Encounters Encounter Diagnosis Diagnosis Code Start Date CONTACT WITH AND SUSPECTED EXPOSURE TO COVID-19 [id number] 11/12/2021 Social History Smoking Status Code Start Date End Date Never smoker 523283651 Patient Decision Aids Unknown or Not Available. Discharge Instructions You were admitted to [facility] on 11/12/2021 10:24 with a principal diagnosis of Contact with and (suspected) exposure to COVID-19 You had the following tests done:ELLIOTT COVID RHEONIX* You were discharged from [facility] on 11/12/2021 10:24 Should you have any [...]
--- OUTSIDE RECORDS SUMMARY | 2023-07-26 16:09 | XMS_ITS | CCD ---
Author Name Unknown Address [address] [place] [address] [phone] Organization Unknown Address [address] [place] [address] [phone] Care Team Providers Care Air Quality Chemist Name Role Phone VINCENZO CHAMPION Attending Physician [phone] Vital Signs Unknown or Not Available. Allergies [...] Tier- RANDOM STAFF N/A SARS COV2 RNA: 90866-8 NEGATIVE N/A REFERENCE RANGE: NEGAT Active Medications Unknown or Not Available. Medications Administered During Visit Unknown or Not Available. Encounters Encounter Diagnosis Diagnosis Code Start Date Exposure to SARS-CoV-2 [id number] Social History Smoking Status Code Start Date End Date Never smoker 771269288 Patient Decision Aids Unknown or Not Available. Discharge Instructions You were admitted to [facility] on 08/22/2021 21:17 with a principal diagnosis of Contact with and (suspected) exposure to COVID-19 You had the following tests done:ELLIOTT COVID RHEONIX* You were discharged from [facility] on 08/22/2021 21:17 Should you [...]
--- OUTSIDE RECORDS SUMMARY | 2023-07-26 16:09 | XMS_ITS | CCD ---
Author Name Unknown Address [address] [place] [address] [phone] Organization Unknown Address [address] [place] [address] [phone] Care Team Providers Care Hand Candy Dipper Name Role Phone VINCENZO CHAMPION Attending Physician [phone] Vital Signs Unknown or Not Available. Allergies [...] Tier- STAFF PRIORITY N/A SARS COV2 RNA: 38045-6 NEGATIVE N/A REFERENCE RANGE: NEGAT Active Medications Unknown or Not Available. Medications Administered During Visit Unknown or Not Available. Encounters Encounter Diagnosis Diagnosis Code Start Date Exposure to SARS-CoV-2 754481464 Social History Smoking Status Code Start Date End Date Never smoker 121838486 Patient Decision Aids Unknown or Not Available. Discharge Instructions You were admitted to [facility] on 10/02/2021 08:42 with a principal diagnosis of Contact with and (suspected) exposure to COVID-19 You had the following tests done:ELLIOTT COVID RHEONIX* You were discharged from [facility] on 10/02/2021 08:42 Should you [...]
[2023-07-26 16:11] LABS: HCT 33.1 % (36.0-46.0); HGB 11.3 g/dL (11.2-15.7); MCH 32.8 pg (27.0-33.0); MCHC 34.1 % (32.0-36.0); MCV 96 fL (80-95); MPV 9.9 fL (8.0-11.0); Platelet Count 239 10^3/uL (130-400); RBC 3.45 10^6/uL (3.93-5.22); RDW 12.6 % (11.7-14.6); RDW-SD 43.9 fL; WBC 10.61 10^3/uL (4.4-10.8)
[2023-07-26 16:19] LABS: Glucose,1 Hr (Glucola) 109 mg/dL (80-140)
== END 2023-07-26 16:05 | disposition home or self-care (01) ==
LOC: LBO 16:06
PROVIDERS: PCP Family Medicine; Visit Provider Advanced Practice Midwife
DX: O26.892 Other specified pregnancy related conditions, second trimester; Z67.91 Unspecified blood type, Rh negative
CPT/HCPCS: 36415; 82950; 85027; 86850; 90384

== ENCOUNTER 2023-07-31 09:20 | Outpatient (CLI) | payer MEDICAID, SELFPAY ==
--- OUTSIDE RECORDS SUMMARY | 2023-07-31 09:23 | XMS_ITS | CCD ---
Author Name Unknown Address [address] [place] [address] [phone] Organization Unknown Address [address] [place] [address] [phone] Care Team Providers Care Medical Stenographer Name Role Phone ARACELI CARROLL Attending Physician [phone] Vital Signs Unknown or Not Available. [...] Diagnosis Diagnosis Code Start Date detection examination [id number] 02/14/2023 Social History Smoking Status Code Start Date End Date Never smoker 326964974 Patient Decision Aids Unknown or Not Available. Discharge Instructions You were admitted to [facility] on 02/14/2023 13:55 with a principal diagnosis of Encounter for test, result unknown You had the following tests done: TEST QUAL (URINE) You were discharged from [facility] on 02/14/2023 13:55 Should you have any [...]
--- OUTSIDE RECORDS SUMMARY | 2023-07-31 09:23 | XMS_ITS | CCD ---
Author Name Unknown Address [address] [place] [address] [phone] Organization Unknown Address [address] [place] [address] [phone] Care Team Providers Care Manager Clinical Name Role Phone MARIA ELENA HOLBROOK Attending Physician [phone] Vital Signs Unknown or Not Available. Allergies [...] Other specified re lated conditions, second trimester [id number] 04/07/2023 Social History Smoking Status Code Start Date End Date Never smoker 057316999 Patient Decision Aids Unknown or Not Available. Discharge Instructions You were admitted to [facility] on 04/07/2023 09:08 with a principal diagnosis of Other specified related conditions, second trimester You were discharged from [facility] Should you have any questions prior [...]
--- OUTSIDE RECORDS SUMMARY | 2023-07-31 09:24 | XMS_ITS | CCD ---
Author Name Unknown Address [address] [place] [address] [phone] Organization Unknown Address [address] [place] [address] [phone] Care Team Providers Care Driving School Instructor Name Role Phone VINCENZO CHAMPION Attending Physician [phone] Vital Signs Unknown or Not Available. Allergies Allergy Code Allergy Type Reaction Status No Known Allergies 0 No known allergies Active Procedures Unknown or Not Available. History of Immunizations Unknown or Not Available. Problems Unknown or Not Available. Results [facility] COVID RHEONIX* - Noreen ect Date/Time: 11/15/2021 10:45 Test Name Code Test Result Test Units Test Ref Rang e Tier- 58227-5 STAFF PRIORITY N/A SARS COV2 RNA: 54858-8 NEGATIVE N/A REFERENCE RANGE: NEGAT Active Medications Unknown or Not Available. Medications Administered During Visit Unknown or Not Available. Encounters Encounter Diagnosis Diagnosis Code Start Date Exposure to SARS-CoV-2 [id number] Social History Smoking Status Code Start Date End Date Never smoker [id number] Patient Decision Aids Unknown or Not Available. Discharge Instructions You were admitted to [facility] on 11/15/2021 19:27 with a principal diagnosis of Contact with and (suspected) exposure to COVID-19 You had the following tests done:[facility] COVID RHEONIX* You were discharged from [facility] on 11/15/2021 19:27 Should you have [...]
--- OUTSIDE RECORDS SUMMARY | 2023-07-31 09:24 | XMS_ITS | CCD ---
Author Name Unknown Address [address] [place] [address] [id number] Organization Unknown Address [address] [place] [address] [phone] Care Team Providers Care Lone Lead Lineman Name Role Phone VINCENZO CHAMPION Attending Physician [phone] Vital Signs Unknown or Not Available. Allergies Allergy Code Allergy Type Reaction Status No Known Allergies 0 No known allergies Active Procedures Unknown or Not Available. History of Immunizations Unknown or Not Available. Problems Unknown or Not Available. Results [facility] COVID RHEONIX* - Noreen ect Date/Time: 01/04/2022 11:03 Test Name Code Test Result Test Units Test Ref Rang e [facility]- 44454-3 STAFF PRIORITY N/A SARS COV2 RNA: 12754-1 POSITIVE N/A REFERENCE RANGE: NEGAT Active Medications Unknown or Not Available. Medications Administered During Visit Unknown or Not Available. Encounters Encounter Diagnosis Diagnosis Code Start Date COVID-19 [id number] 01/04/2022 Social History Smoking Status Code Start Date End Date Never smoker [id number] Patient Decision Aids Unknown or Not Available. Discharge Instructions You were admitted to [facility] on 01/04/2022 16:43 with a principal diagnosis of COVID-19 You had the following tests done:[facility] COVID RHEONIX* You were discharged from [facility] on 01/04/2022 16:43 Should you have [...]
--- OUTSIDE RECORDS SUMMARY | 2023-07-31 09:24 | XMS_ITS | CCD ---
Author Name Unknown Address [address] [place] [address] [phone] Organization Unknown Address [address] [place] [address] [phone] Care Team Providers Care Technology Infusion Specialist Name Role Phone VINCENZO CHAMPION Attending Physician [phone] Vital Signs Unknown or Not Available. Allergies [...] Tier- STAFF PRIORITY N/A SARS COV2 RNA: 95733-2 NEGATIVE N/A REFERENCE RANGE: NEGAT Active Medications Unknown or Not Available. Medications Administered During Visit Unknown or Not Available. Encounters Encounter Diagnosis Diagnosis Code Start Date Exposure to SARS-CoV-2 [id number] Social History Smoking Status Code Start Date End Date Never smoker [id number] Patient Decision Aids Unknown or Not Available. Discharge Instructions You were admitted to [facility] on 09/30/2021 16:09 with a principal diagnosis of Contact with and (suspected) exposure to COVID-19 You had the following tests done:[facility] COVID RHEONIX* You were discharged from [facility] on 09/30/2021 16:09 Should you have [...]
--- OUTSIDE RECORDS SUMMARY | 2023-07-31 09:24 | XMS_ITS | CCD ---
Author Name Unknown Address [address] [place] [address] [phone] Organization Unknown Address [address] [place] [address] [phone] Care Team Providers Care Tractor Technician Name Role Phone VINCENZO CHAMPION Attending Physician [phone] Vital Signs Unknown or Not Available. Allergies Allergy Code Allergy Type Reaction Status No Known Allergies 0 No known allergies Active Procedures Unknown or Not Available. History of Immunizations Unknown or Not Available. Problems Unknown or Not Available. Results [facility] COVID RHEONIX* - Noreen ect Date/Time: 12/29/2021 11:00 Test Name Code Test Result Test Units Test Ref Rang e Tier- 71117-8 STAFF EXPOSURE N/A SARS COV2 RNA: 57238-7 NEGATIVE N/A REFERENCE RANGE: NEGAT Active Medications Unknown or Not Available. Medications Administered During Visit Unknown or Not Available. Encounters Encounter Diagnosis Diagnosis Code Start Date Exposure to SARS-CoV-2 107579125 Social History Smoking Status Code Start Date End Date Never smoker 176862884 Patient Decision Aids Unknown or Not Available. Discharge Instructions You were admitted to [facility] on 12/29/2021 08:45 with a principal diagnosis of Contact with and (suspected) exposure to COVID-19 You had the following tests done:[facility] COVID RHEONIX* You were discharged from [facility] on 12/29/2021 08:45 Should you have [...]
--- OUTSIDE RECORDS SUMMARY | 2023-07-31 09:24 | XMS_ITS | CCD ---
Author Name Unknown Address [address] [place] [address] [phone] Organization Unknown Address [address] [place] [address] [phone] Care Team Providers Care Flight Inspector Name Role Phone MARIA ELENA HOLBROOK Attending Physician [phone] Vital Signs Unknown or Not Available. Allergies Allergy Code Allergy Type Reaction Status No Known Allergies 0 No known allergies Active Procedures Unknown or Not Available. History of Immunizations Unknown or Not Available. Problems Unknown or Not Available. Results HCG QUANTITATIVE WHOLE MOLEC ULE* - Collect Date/Time: 01/10/2023 14:08 Test Name Code Test Result Test Units Test Ref Rang e HCG, total+Beta subs 06867-7 12 N/A Active Medications Unknown or Not Available. Medications Administered During Visit Unknown or Not Available. Encounters Encounter Diagnosis Diagnosis Code Start Date [id number] 01/10/2023 Social History Smoking Status Code Start Date End Date Never smoker [id number] Patient Decision Aids Unknown or Not Available. Discharge Instructions You were admitted to [facility] on 01/10/2023 19:50 with a principal diagnosis of state, incidental You had the following tests done:HCG QUANTITATIVE WHOLE MOLECULE* You were discharged from [facility] on 01/10/2023 19:50 Should you have [...]
--- OUTSIDE RECORDS SUMMARY | 2023-07-31 09:25 | XMS_ITS | CCD ---
Author Name Unknown Address [address] [place] [address] [phone] Organization Unknown Address [address] [place] [address] [phone] Care Team Providers Care Visual Aid Expert Name Role Phone VINCENZO CHAMPION Attending Physician [phone] Vital Signs Unknown or Not Available. Allergies [...] Tier- RANDOM STAFF N/A SARS COV2 RNA: 77144-4 NEGATIVE N/A REFERENCE RANGE: NEGAT Active Medications Unknown or Not Available. Medications Administered During Visit Unknown or Not Available. Encounters Encounter Diagnosis Diagnosis Code Start Date Exposure to SARS-CoV-2 769116856 Social History Smoking Status Code Start Date End Date Never smoker 545923094 Patient Decision Aids Unknown or Not Available. Discharge Instructions You were admitted to [facility] on 08/22/2021 21:17 with a principal diagnosis of Contact with and (suspected) exposure to COVID-19 You had the following tests done:[facility] COVID RHEONIX* You were discharged from [facility] on 08/22/2021 21:17 Should you have [...]
--- OUTSIDE RECORDS SUMMARY | 2023-07-31 09:25 | XMS_ITS | CCD ---
Author Name Unknown Address [address] [place] [address] [phone] Organization Unknown Address [address] [place] [address] [phone] Care Team Providers Care Lead Refiner Name Role Phone VINCENZO CHAMPION Attending Physician [phone] Vital Signs Unknown or Not Available. Allergies [...] Tier- STAFF PRIORITY N/A SARS COV2 RNA: 59859-0 NEGATIVE N/A REFERENCE RANGE: NEGAT Active Medications Unknown or Not Available. Medications Administered During Visit Unknown or Not Available. Encounters Encounter Diagnosis Diagnosis Code Start Date Exposure to SARS-CoV-2 818512859 Social History Smoking Status Code Start Date End Date Never smoker [id number] Patient Decision Aids Unknown or Not Available. Discharge Instructions You were admitted to [facility] on 10/02/2021 08:42 with a principal diagnosis of Contact with and (suspected) exposure to COVID-19 You had the following tests done:[facility]IOTT COVID RHEONIX* You were discharged from [facility] on 10/02/2021 08:42 Should you have any [...]
[2023-07-31 10:16] VITALS: BP 113/68; PULSE 86; TEMP 36.5
[2023-07-31 10:26] VITALS: BP 113/68; PULSE 86
--- NOTE | 2023-07-31 11:09 | W.OBNST ---
Date of service: 07/31/23 Time of Service: 11:09 NST Evaluation Reason for NST Reasons for Nonstress Test: DECREASED MOVEMENT Reason for NST Other: maternal anxiety Gestational Age Gestational Age in Weeks and Days: 28 Weeks and 5Days Test and Monitor Explained Test/Monitor Explained: Test Explained, Monitor Explained and Patient Verbalized Understanding Vital Signs Blood Pressure: 113/68 Pulse: 86 Urine Results Urine Protein: Negative Urine Ketones: Negative NST Information Date on Monitor: 07/31/23 Time on Monitor: 10:10 Date off Monitor: 07/31/23 Time off Monitor: 11:09 Total Time on Monitor: 59 NST Interventions: PO Hydration Contraction Frequency: 0 NST Evaluation Patient States Movement: Present FHR Baseline: 140 Variability: Moderate 6-25 bpm Accelerations: 15x15 Decelerations: None NST Results: Reactive Note Ultrasound Done: N/A. NST Note NST Reviewed and Verified by: Heather Lucero
[2023-07-31 11:10] VITALS: BP 113/68; PULSE 86
== END 2023-07-31 11:00 ==
LOC: BCD 09:22 → OBS 10:16
PROVIDERS: PCP Family Medicine; Visit Provider Advanced Practice Midwife
DX: O36.8131 Decreased fetal movements, third trimester, fetus 1 (principal); Z3A.28 28 weeks gestation of pregnancy
CPT/HCPCS: 59025

== ENCOUNTER 2023-08-23 09:39 | Outpatient (REF) | payer MEDICAID, SELFPAY | END 2023-08-23 09:40 | disposition home or self-care (01) | LOC: LBN 09:39 | PROVIDERS: PCP Family Medicine; Visit Provider Advanced Practice Midwife | DX: N94.9 Unspecified condition associated with female genital organs and menstrual cycle (principal) | CPT/HCPCS: 87480; 87510; 87660 ==

== ENCOUNTER → 2023-08-30 01:27 | Outpatient (CLI) | payer MEDICAID, SELFPAY ==
--- OUTSIDE RECORDS SUMMARY | 2023-08-30 01:28 | XMS_ITS | CCD ---
Author Name Unknown Address [address] [place] [address] [phone] Organization Unknown Address [address] [place] [address] [phone] Care Team Providers Care Sensitizer Name Role Phone ARACELI CARROLL Attending Physician [phone] Vital Signs Unknown or Not Available. [...] Diagnosis Diagnosis Code Start Date detection examination [id number] 02/14/2023 Social History Smoking Status Code Start Date End Date Never smoker 688692739 Patient Decision Aids Unknown or Not Available. [...]
--- OUTSIDE RECORDS SUMMARY | 2023-08-30 01:28 | XMS_ITS | CCD ---
Author Name Unknown Address [address] [place] [address] [phone] Organization Unknown Address [address] [place] [address] [phone] Care Team Providers Care Manager Business Management Name Role Phone MARIA ELENA HOLBROOK Attending Physician [phone] Vital Signs Unknown or Not Available. Allergies Allergy Code Allergy Type Reaction Status No Known Allergies 0 No known allergies Active Procedures Unknown or Not Available. History of Immunizations Unknown or Not Available. Problems Unknown or Not Available. Results HCG QUANTITATIVE WHOLE MOLEC ULE* - Collect Date/Time: 01/10/2023 14:08 Test Name Code Test Result Test Units Test Ref Rang e HCG, total+Beta subs 52072-8 12 N/A Active Medications Unknown or Not Available. Medications Administered During Visit Unknown or Not Available. Encounters Encounter Diagnosis Diagnosis Code Start Date [id number] 01/10/2023 Social History Smoking Status Code Start Date End Date Never smoker 311634961 Patient Decision Aids Unknown or Not Available. Discharge Instructions You were admitted to [facility] on 01/10/2023 19:50 with a principal diagnosis of state, incidental You had the following tests done:HCG QUANTITATIVE WHOLE MOLECULE* You were discharged from [facility] on 01/10/2023 19:50 Should you have [...]
--- OUTSIDE RECORDS SUMMARY | 2023-08-30 01:28 | XMS_ITS | CCD ---
Author Name Unknown Address [address] [place] [address] [phone] Organization Unknown Address [address] [place] [address] [phone] Care Team Providers Care On Air Host Name Role Phone SHERON MARIA ELENA Rosa M Attending Physician [phone] Vital Signs Unknown or Not Available. Allergies Allergy Code Allergy Type Reaction Status No Known Allergies 0 No known allergies Active Procedures Unknown or Not Available. History of Immunizations Unknown or Not Available. Problems Unknown or Not Available. Results CULT URINE CULTURE* - Colle t Date/Time: 11/03/2022 14:35 Test Name Code Test Result Test Units Test Ref Rang e COLLECTION MODE: 00917-1 CLEAN CATCH N/A URINALYSIS WITH REFLEX CULT IF POSITIVE* - Collect Date/Time: 11/03/2022 14:35 Test Name Code Test Result Test Units Test Ref Rang e COLLECTION MODE: 48899-1 CLEAN CATCH N/A Color 5778-6 YELLOW N/A yellow Appearance 5767-9 CLEAR N/A clear Glucose urine 52913-1 NEGATIVE N/A negative mg /dl Bilirubin 5770-3 NEGATIVE N/A negative Ketones 2514-8 NEGATIVE N/A negative mg/dl Spec gravity 5811-5 >=1.030 N/A 1.003 - 1.03 0 pH urine 2756-5 6.0 N/A 5.0 - 7.0 Protein 48685-7 NEGATIVE N/A negative mg/dl Urobilinogen 05421-8 0.2 N/A <or= 1 EU/dl Nitrite. 5802-4 NEGATIVE N/A negative Blood 5794-3 NEGATIVE N/A negative Leukocytes. TRACE N/A negative MICROSCOPIC INDICATED N/A WBCs. 12353-7 5-10 N/A 0-5 / hpf RBCs 62572-7 none N/A 0-5 / hpf Epith cells 83658-9 5-10 N/A 0-5 / hpf Cell types squamous N/A Crystals none N/A none Bacteria none N/A none Mucus 8247-9 present N/A none Casts 26740-1 none N/A none /lpf Active Medications Unknown or Not Available. Medications Administered During Visit Unknown or Not Available. Encounters Encounter Diagnosis Diagnosis Code Start Date Personal [place] [address] 11/03/2022 Social History Smoking Status Code Start Date End Date Never smoker 374477806 Patient Decision Aids Unknown or Not Available. Discharge Instructions You were admitted to [facility] on 11/03/2022 14:44 with a principal diagnosis of Personal history of urinary (tract) infections You had the following tests done:CULT URINE CULTURE*URINALYSIS WITH REFLEX CULT IF POSITIVE* You were discharged from [facility] on 11/03/2022 14:44 Should you have any [...]
--- OUTSIDE RECORDS SUMMARY | 2023-08-30 01:28 | XMS_ITS | CCD ---
Author Name Unknown Address [address] [place] [address] [phone] Organization Unknown Address [address] [place] [address] [phone] Care Team Providers Care Cut Off Saw Set Up Operator Name Role Phone MARIA ELENA HOLBROOK Attending Physician [phone] Vital Signs Unknown or Not Available. Allergies [...] Other specified re lated conditions, second trimester E03059 04/07/2023 Social History Smoking Status Code Start Date End Date Never smoker [id number] Patient Decision Aids Unknown or Not Available. Discharge Instructions You were admitted to [facility] on 04/07/2023 09:08 with a principal diagnosis of Other specified related conditions, second trimester You were discharged from [facility] Should you have any questions prior to [...]
--- OUTSIDE RECORDS SUMMARY | 2023-08-30 01:29 | XMS_ITS | CCD ---
Author Name Unknown Address [address] [place] [address] [phone] Organization Unknown Address [address] [place] [address] [phone] Care Team Providers Care Sales And Marketing Engineer Name Role Phone VINCENZO CHAMPION Attending Physician [phone] Vital Signs Unknown or Not Available. Allergies Allergy Code Allergy Type Reaction Status No Known Allergies 0 No known allergies Active Procedures Unknown or Not Available. History of Immunizations Unknown or Not Available. Problems Unknown or Not Available. Results [facility] COVID RHEONIX* - Noreen ect Date/Time: 11/15/2021 10:45 Test Name Code Test Result Test Units Test Ref Rang e Tier- 43847-2 STAFF PRIORITY N/A SARS COV2 RNA: 59709-9 NEGATIVE N/A REFERENCE RANGE: NEGAT Active Medications Unknown or Not Available. Medications Administered During Visit Unknown or Not Available. Encounters Encounter Diagnosis Diagnosis Code Start Date Exposure to SARS-CoV-2 980191065 Social History Smoking Status Code Start Date End Date Never smoker 055269153 Patient Decision Aids Unknown or Not Available. [...]
--- OUTSIDE RECORDS SUMMARY | 2023-08-30 01:29 | XMS_ITS | CCD ---
Author Name Unknown Address [address] [place] [address] [phone] Organization Unknown Address [address] [place] [address] [phone] Care Team Providers Care Cracker And Cookie Machine Operator Name Role Phone VINCENZO CHAMPION Attending Physician [phone] Vital Signs Unknown or Not Available. Allergies [...] Tier- STAFF PRIORITY N/A SARS COV2 RNA: 82460-0 NEGATIVE N/A REFERENCE RANGE: NEGAT Active Medications Unknown or Not Available. Medications Administered During Visit Unknown or Not Available. Encounters Encounter Diagnosis Diagnosis Code Start Date Exposure to SARS-CoV-2 [id number] Social History Smoking Status Code Start Date End Date Never smoker 612291700 Patient Decision Aids Unknown or Not Available. Discharge Instructions You were admitted to [facility] on 10/02/2021 08:42 with a principal diagnosis of Contact with and (suspected) exposure to COVID-19 You had the following tests done:[facility]OTT COVID RHEONIX* You were discharged from [facility] on 10/02/2021 08:42 Should you have [...]
--- OUTSIDE RECORDS SUMMARY | 2023-08-30 01:29 | XMS_ITS | CCD ---
Author Name Unknown Address [address] [place] [address] [phone] Organization Unknown Address [address] [place] [address] [phone] Care Team Providers Care Visual Arts Teacher Name Role Phone VINCENZO CHAMPION Attending Physician [phone] Vital Signs Unknown or Not Available. Allergies Allergy Code Allergy Type Reaction Status No Known Allergies 0 No known allergies Active Procedures Unknown or Not Available. History of Immunizations Unknown or Not Available. Problems Unknown or Not Available. Results [facility] COVID RHEONIX* - Noreen ect Date/Time: 11/12/2021 09:48 Test Name Code Test Result Test Units Test Ref Rang e [facility]- 17692-7 STAFF PRIORITY N/A SARS COV2 RNA: 18763-2 NEGATIVE N/A REFERENCE RANGE: NEGAT Active Medications Unknown or Not Available. Medications Administered During Visit Unknown or Not Available. Encounters Encounter Diagnosis Diagnosis Code Start Date CONTACT WITH AND SUSPECTED EXPOSURE TO COVID-19 E94926 11/12/2021 Social History Smoking Status Code Start Date End Date Never smoker 322875937 Patient Decision Aids Unknown or Not Available. Discharge Instructions You were admitted to [facility] on 11/12/2021 10:24 with a principal diagnosis of Contact with and (suspected) exposure to COVID-19 You had the following tests done:ELLIOTT COVID RHEONIX* You were discharged from [facility] on 11/12/2021 10:24 Should you have [...]
--- OUTSIDE RECORDS SUMMARY | 2023-08-30 01:29 | XMS_ITS | CCD ---
Author Name Unknown Address [address] [place] [address] [phone] Organization Unknown Address [address] [place] [address] [phone] Care Team Providers Care Photovoltaic Panel Installer Name Role Phone VINCENZO CHAMPION Attending Physician [phone] Vital Signs Unknown or Not Available. Allergies Allergy Code Allergy Type Reaction Status No Known Allergies 0 No known allergies Active Procedures Unknown or Not Available. History of Immunizations Unknown or Not Available. Problems Unknown or Not Available. Results [facility] COVID RHEONIX* - Noreen ect Date/Time: 12/29/2021 11:00 Test Name Code Test Result Test Units Test Ref Rang e Tier- 14609-0 STAFF EXPOSURE N/A SARS COV2 RNA: 60906-3 NEGATIVE N/A REFERENCE RANGE: NEGAT Active Medications Unknown or Not Available. Medications Administered During Visit Unknown or Not Available. Encounters Encounter Diagnosis Diagnosis Code Start Date Exposure to SARS-CoV-2 536450131 Social History Smoking Status Code Start Date End Date Never smoker 373088503 Patient Decision Aids Unknown or Not Available. [...]
--- OUTSIDE RECORDS SUMMARY | 2023-08-30 01:29 | XMS_ITS | CCD ---
Author Name Unknown Address [address] [place] [address] [phone] Organization Unknown Address [address] [place] [address] [phone] Care Team Providers Care Classroom Assistant Name Role Phone VINCENZO CHAMPION Attending Physician [phone] Vital Signs Unknown or Not Available. Allergies [...] Tier- RANDOM STAFF N/A SARS COV2 RNA: 11251-6 NEGATIVE N/A REFERENCE RANGE: NEGAT Active Medications Unknown or Not Available. Medications Administered During Visit Unknown or Not Available. Encounters Encounter Diagnosis Diagnosis Code Start Date Exposure to SARS-CoV-2 923870633 Social History Smoking Status Code Start Date End Date Never smoker 163123218 Patient Decision Aids Unknown or Not Available. [...]
--- NOTE | 2023-08-30 08:15 | DI.US_ITS ---
Exam(s) US OB BHAVIN WEIGHT EXAM: US OB BHAVIN WEIGHT CLINICAL HISTORY: S<D,UTERINE SIZE DISCREPANCY,o26.849. TECHNIQUE: Transabdominal obstetrical ultrasound performed. COMPARISON: US US OB 2-3 TRIMESTER from 05/19/2023 FINDINGS:: Number of fetuses: One. position: Vertex. Placental location: Fundal/anterior, grade 1-2. no evidence of previa. BIOMETRIC DATA: BPD: 84mm = 33+ 6 weeks HC: 300mm = 33+2 weeks AC: 301mm = 34+ 0 weeks FL: 67 mm = 34+2 weeks EFW: 2324 Gms = 72% Composite Age: 33+ 6 weeks AMADOR: 12 October 2023 Heart Rate: 155BPM Amniotic fluid: Amount of fluid is visually within normal limits. IMPRESSION: size and weight are within the expected range. DATA REPOSITORY:
== END ==
PROVIDERS: PCP Family Medicine; Visit Provider Advanced Practice Midwife
DX: O26.843 Uterine size-date discrepancy, third trimester (principal); Z3A.33 33 weeks gestation of pregnancy
CPT/HCPCS: 76816

== ENCOUNTER 2023-08-30 09:07 | Outpatient (CLI) | payer MEDICAID, SELFPAY ==
--- OUTSIDE RECORDS SUMMARY | 2023-08-30 09:12 | XMS_ITS | CCD ---
Author Name Unknown Address [address] [place] [address] [phone] Organization Unknown Address [address] [place] [address] [phone] Care Team Providers Care Personnel Specialist Name Role Phone VINCENZO CHAMPION Attending Physician [phone] Vital Signs Unknown or Not Available. Allergies Allergy Code Allergy Type Reaction Status No Known Allergies 0 No known allergies Active Procedures Unknown or Not Available. History of Immunizations Unknown or Not Available. Problems Unknown or Not Available. Results [facility] COVID RHEONIX* - Noreen ect Date/Time: 12/29/2021 11:00 Test Name Code Test Result Test Units Test Ref Rang e Tier- 20864-4 STAFF EXPOSURE N/A SARS COV2 RNA: 92294-6 NEGATIVE N/A REFERENCE RANGE: NEGAT Active Medications Unknown or Not Available. Medications Administered During Visit Unknown or Not Available. Encounters Encounter Diagnosis Diagnosis Code Start Date Exposure to SARS-CoV-2 468199055 Social History Smoking Status Code Start Date End Date Never smoker 598321121 Patient Decision Aids Unknown or Not Available. Discharge Instructions You were admitted to [facility] on 12/29/2021 08:45 with a principal diagnosis of Contact with and (suspected) exposure to COVID-19 You had the following tests done:ELLIOTT COVID RHEONIX* You were discharged from [facility] on 12/29/2021 08:45 Should you have [...]
--- OUTSIDE RECORDS SUMMARY | 2023-08-30 09:12 | XMS_ITS | CCD ---
Author Name Unknown Address [address] [place] [address] [phone] Organization Unknown Address [address] [place] [address] [phone] Care Team Providers Care Gas Meter Mechanic Name Role Phone SHERON MARIA ELENA Rosa M Attending Physician [phone] Vital Signs Unknown or Not Available. Allergies Allergy Code Allergy Type Reaction Status No Known Allergies 0 No known allergies Active Procedures Unknown or Not Available. History of Immunizations Unknown or Not Available. Problems Unknown or Not Available. Results CULT URINE CULTURE* - Colle t Date/Time: 11/03/2022 14:35 Test Name Code Test Result Test Units Test Ref Rang e COLLECTION MODE: 17430-4 CLEAN CATCH N/A URINALYSIS WITH REFLEX CULT IF POSITIVE* - Collect Date/Time: 11/03/2022 14:35 Test Name Code Test Result Test Units Test Ref Rang e COLLECTION MODE: 65920-3 CLEAN CATCH N/A Color 5778-6 YELLOW N/A yellow Appearance 5767-9 CLEAR N/A clear Glucose urine 72471-3 NEGATIVE N/A negative mg /dl Bilirubin 5770-3 NEGATIVE N/A negative Ketones 2514-8 NEGATIVE N/A negative mg/dl Spec gravity 5811-5 >=1.030 N/A 1.003 - 1.03 0 pH urine 2756-5 6.0 N/A 5.0 - 7.0 Protein 73865-8 NEGATIVE N/A negative mg/dl Urobilinogen 83672-2 0.2 N/A <or= 1 EU/dl Nitrite. 5802-4 NEGATIVE N/A negative Blood 5794-3 NEGATIVE N/A negative Leukocytes. TRACE N/A negative MICROSCOPIC INDICATED N/A WBCs. 98732-7 5-10 N/A 0-5 / hpf RBCs 83542-7 none N/A 0-5 / hpf Epith cells 19841-2 5-10 N/A 0-5 / hpf Cell types squamous N/A Crystals none N/A none Bacteria none N/A none Mucus 8247-9 present N/A none Casts 84193-4 none N/A none /lpf Active Medications Unknown or Not Available. Medications Administered During Visit Unknown or Not Available. Encounters Encounter Diagnosis Diagnosis Code Start Date Personal history of urinary ([place]) [place] Z 74356 11/03/2022 Social History Smoking Status Code Start Date End Date Never smoker [id number] Patient Decision Aids Unknown or Not Available. Discharge Instructions You were admitted to [facility] on 11/03/2022 14:44 with a principal diagnosis of Personal history of urinary (tract) infections You had the following tests done:CULT URINE CULTURE*URINALYSIS WITH REFLEX CULT IF POSITIVE* You were discharged from [facility] on 11/03/2022 14:44 Should you have [...]
--- OUTSIDE RECORDS SUMMARY | 2023-08-30 09:12 | XMS_ITS | CCD ---
Author Name Unknown Address [address] [place] [address] [phone] Organization Unknown Address [address] [place] [address] [phone] Care Team Providers Care Quality Assistant Name Role Phone VINCENZO CHAMPION Attending Physician [phone] Vital Signs Unknown or Not Available. Allergies Allergy Code Allergy Type Reaction Status No Known Allergies 0 No known allergies Active Procedures Unknown or Not Available. History of Immunizations Unknown or Not Available. Problems Unknown or Not Available. Results [facility] COVID RHEONIX* - Noreen ect Date/Time: 11/15/2021 10:45 Test Name Code Test Result Test Units Test Ref Rang e Tier- 59060-1 STAFF PRIORITY N/A SARS COV2 RNA: 86980-3 NEGATIVE N/A REFERENCE RANGE: NEGAT Active Medications Unknown or Not Available. Medications Administered During Visit Unknown or Not Available. Encounters Encounter Diagnosis Diagnosis Code Start Date Exposure to SARS-CoV-2 [id number] Social History Smoking Status Code Start Date End Date Never smoker [id number] Patient Decision Aids Unknown or Not Available. Discharge Instructions You were admitted to [facility] on 11/15/2021 19:27 with a principal diagnosis of Contact with and (suspected) exposure to COVID-19 You had the following tests done:[facility] COVID RHEONIX* You were discharged from [facility] on 11/15/2021 19:27 Should you have any [...]
--- OUTSIDE RECORDS SUMMARY | 2023-08-30 09:12 | XMS_ITS | CCD ---
Author Name Unknown Address [address] [place] [address] [phone] Organization Unknown Address [address] [place] [address] [phone] Care Team Providers Care Packaging Specialist Name Role Phone ARACELI CARROLL Attending Physician [phone] Vital Signs Unknown or Not Available. [...] Diagnosis Diagnosis Code Start Date detection examination [id number] 02/14/2023 Social History Smoking Status Code Start Date End Date Never smoker [id number] Patient Decision Aids Unknown or Not Available. Discharge Instructions You were admitted to [facility] on 02/14/2023 13:55 with a principal diagnosis of Encounter for test, result unknown You had the following tests done: TEST QUAL (URINE) You were discharged from [facility] on 02/14/2023 13:55 Should you have [...]
--- OUTSIDE RECORDS SUMMARY | 2023-08-30 09:12 | XMS_ITS | CCD ---
Author Name Unknown Address [address] [place] [address] [phone] Organization Unknown Address [address] [place] [address] [phone] Care Team Providers Care Customs Appraiser Name Role Phone MARIA ELENA HOLBROOK Attending Physician [phone] Vital Signs Unknown or Not Available. Allergies Allergy Code Allergy Type Reaction Status No Known Allergies 0 No known allergies Active Procedures Unknown or Not Available. History of Immunizations Unknown or Not Available. Problems Unknown or Not Available. Results HCG QUANTITATIVE WHOLE MOLEC ULE* - Collect Date/Time: 01/10/2023 14:08 Test Name Code Test Result Test Units Test Ref Rang e HCG, total+Beta subs 89272-9 12 N/A Active Medications Unknown or Not Available. Medications Administered During Visit Unknown or Not Available. Encounters Encounter Diagnosis Diagnosis Code Start Date [id number] 01/10/2023 Social History Smoking Status Code Start Date End Date Never smoker 272583126 Patient Decision Aids Unknown or Not Available. Discharge Instructions You were admitted to [facility] on 01/10/2023 19:50 with a principal diagnosis of state, incidental You had the following tests done:HCG QUANTITATIVE WHOLE MOLECULE* You were discharged from [facility] on 01/10/2023 19:50 Should you have [...]
--- OUTSIDE RECORDS SUMMARY | 2023-08-30 09:12 | XMS_ITS | CCD ---
Author Name Unknown Address [address] [place] [address] [phone] Organization Unknown Address [address] [place] [address] [phone] Care Team Providers Care Social Work Specialist Name Role Phone MARIA ELENA HOLBROOK Attending Physician [phone] Vital Signs Unknown or Not Available. Allergies [...] Other specified re lated conditions, second trimester [id number] 04/07/2023 Social History Smoking Status Code Start Date End Date Never smoker [id number] Patient Decision Aids Unknown or Not Available. Discharge Instructions You were admitted to [facility] on 04/07/2023 09:08 with a principal diagnosis of Other specified related conditions, second trimester You were discharged from [facility] Should you have any questions prior [...]
--- OUTSIDE RECORDS SUMMARY | 2023-08-30 09:13 | XMS_ITS | CCD ---
Author Name Unknown Address [address] [place] [address] [phone] Organization Unknown Address [address] [place] [address] [phone] Care Team Providers Care Helium Arc Welder Name Role Phone VINCENZO CHAMPION Attending Physician [phone] Vital Signs Unknown or Not Available. Allergies [...] Tier- STAFF PRIORITY N/A SARS COV2 RNA: 45858-2 NEGATIVE N/A REFERENCE RANGE: NEGAT Active Medications Unknown or Not Available. Medications Administered During Visit Unknown or Not Available. Encounters Encounter Diagnosis Diagnosis Code Start Date Exposure to SARS-CoV-2 [id number] Social History Smoking Status Code Start Date End Date Never smoker [id number] Patient Decision Aids Unknown or Not Available. Discharge Instructions You were admitted to [facility] on 10/02/2021 08:42 with a principal diagnosis of Contact with and (suspected) exposure to COVID-19 You had the following tests done:[facility] COVID RHEONIX* You were discharged from [facility] on 10/02/2021 08:42 Should you [...]
--- OUTSIDE RECORDS SUMMARY | 2023-08-30 09:13 | XMS_ITS | CCD ---
Author Name Unknown Address [address] [place] [address] [phone] Organization Unknown Address [address] [place] [address] [phone] Care Team Providers Care Mid Level Game Designer Name Role Phone VINCENZO CHAMPION Attending Physician [phone] Vital Signs Unknown or Not Available. Allergies [...] Tier- STAFF PRIORITY N/A SARS COV2 RNA: 19266-1 NEGATIVE N/A REFERENCE RANGE: NEGAT Active Medications Unknown or Not Available. Medications Administered During Visit Unknown or Not Available. Encounters Encounter Diagnosis Diagnosis Code Start Date Exposure to SARS-CoV-2 505079630 Social History Smoking Status Code Start Date End Date Never smoker [id number] Patient Decision Aids Unknown or Not Available. [...]
--- OUTSIDE RECORDS SUMMARY | 2023-08-30 09:13 | XMS_ITS | CCD ---
Author Name Unknown Address [address] [place] [address] [phone] Organization Unknown Address [address] [place] [address] [phone] Care Team Providers Care Director Process Name Role Phone VINCENZO CHAMPION Attending Physician [phone] Vital Signs Unknown or Not Available. Allergies [...] Tier- RANDOM STAFF N/A SARS COV2 RNA: 33180-6 NEGATIVE N/A REFERENCE RANGE: NEGAT Active Medications Unknown or Not Available. Medications Administered During Visit Unknown or Not Available. Encounters Encounter Diagnosis Diagnosis Code Start Date Exposure to SARS-CoV-2 [id number] Social History Smoking Status Code Start Date End Date Never smoker 102359845 Patient Decision Aids Unknown or Not Available. Discharge Instructions You were admitted to [facility] on 08/22/2021 21:17 with a principal diagnosis of Contact with and (suspected) exposure to COVID-19 You had the following tests done:[facility] COVID RHEONIX* You were discharged from [facility] on 08/22/2021 21:17 Should you have [...]
[2023-08-30 10:24] VITALS: BP 117/71; PULSE 93; TEMP 36.7
--- NOTE | 2023-08-30 11:22 | W.OBNST ---
Date of service: 08/30/23 Time of Service: : NST Evaluation Reason for NST Reasons for Nonstress Test: OTHER, SEE COMMENT Reason for NST Other: Rule out Gestational Age Gestational Age in Weeks and Days: 33 Weeks and 0Days Test and Monitor Explained Test/Monitor Explained: Test Explained and Monitor Explained Vital Signs Blood Pressure: 117/71 Pulse: 93 Temperature: 98.1 F Urine Results Urine Protein: Negative Urine Ketones: Negative Urine Glucose: Negative Urine Blood: Negative NST Information Date on Monitor: 08/30/23 Time on Monitor: 10: Date off Monitor: 08/30/23 Time off Monitor: : Total Time on Monitor: 61 NST Interventions: PO Hydration Contraction Frequency: 0 NST Evaluation Patient States Movement: Present FHR Baseline: 135 Variability: Moderate 6-25 bpm Accelerations: 15x15 Decelerations: None NST Results: Reactive Note Ultrasound Done: N/A. NST Note NST Reviewed and Verified by: Heather Lucero
[2023-08-30 11:23] VITALS: BP 117/71; PULSE 93; TEMP 36.7
== END 2023-08-30 11:20 | disposition home or self-care (01) ==
LOC: BCD 09:10 → OBS 10:17
PROVIDERS: PCP Family Medicine; Visit Provider Advanced Practice Midwife
DX: O47.03 False labor before 37 completed weeks of gestation, third trimester (principal); Z3A.33 33 weeks gestation of pregnancy
CPT/HCPCS: 59025

== ENCOUNTER 2023-09-20 16:46 | Outpatient (REF) | payer MEDICAID, SELFPAY ==
[2023-09-20 16:58] LABS: *AMPHETAMINES SCREEN URINE Negative (Negative); *BARBITURATES SCREEN URINE Negative (Negative); *BENZODIAZEPINES SCREEN URINE Negative (Negative); Cannabinoids THC Negative (Negative); Cocaine Screen,Urine Negative (Negative); METHADONE URINE SCREEN Negative (Negative); OPIATES URINE SCREEN Negative (Negative); Tricyclic Antidepressants Negative (Negative)
[2023-09-29 16:48] LABS: Buprenorphine Negative ng/mL (Cutoff: 5.0)
== END 2023-09-20 16:47 | disposition home or self-care (01) ==
LOC: LBN 16:46
PROVIDERS: PCP Family Medicine; Visit Provider Obstetrics & Gynecology
DX: Z34.93 Encounter for supervision of normal pregnancy, unspecified, third trimester (principal); Z36.85 Encounter for antenatal screening for Streptococcus B; Z3A.36 36 weeks gestation of pregnancy
CPT/HCPCS: 80307; 80348; 87081

== ENCOUNTER 2023-10-03 14:34 | Outpatient (CLI) | payer MEDICAID, SELFPAY ==
[2023-10-03 15:05] VITALS: BP 131/80; PULSE 93
--- NOTE | 2023-10-03 15:43 | W.OBNST ---
Date of service: 10/03/23 Time of Service: 15:43 NST Evaluation Reason for NST Reasons for Nonstress Test: GESTATIONAL HYPERTENSION Gestational Age Gestational Age in Weeks and Days: 37 Weeks and 6Days Test and Monitor Explained Test/Monitor Explained: Test Explained, Monitor Explained and Patient Verbalized Understanding NST Information Date on Monitor: 10/03/23 Time on Monitor: 15:05 Date off Monitor: 10/03/23 Time off Monitor: 15:30 Total Time on Monitor: 25 NST Interventions: None Contraction Frequency: irreg NST Evaluation Patient States Movement: Present FHR Baseline: 125 Variability: Moderate 6-25 bpm Accelerations: 15x15 Decelerations: None NST Results: Reactive Note Ultrasound Done: N/A. NST Note Note: NST is reactive and reassuring. VS stable. BP 131/80 P 93 R18. Note for out of work given. Reviewed signs of active labor and when to call. If ROM + is negative will discharge to home. [place] NST Reviewed and Verified by: Irene Simmons
== END 2023-10-03 16:00 | disposition home or self-care (01) ==
LOC: BCD 14:35 → OBS 15:03
PROVIDERS: PCP Family Medicine; Visit Provider Advanced Practice Midwife
DX: O10.013 Pre-existing essential hypertension complicating pregnancy, third trimester (principal); Z3A.37 37 weeks gestation of pregnancy
CPT/HCPCS: 59025

== ENCOUNTER 2023-10-03 15:18 | Outpatient (REF) | payer MEDICAID, SELFPAY ==
[2023-10-03 15:47] LABS: ROM Plus Negative
== END 2023-10-03 15:19 | disposition home or self-care (01) ==
LOC: LBN 15:18
PROVIDERS: Advanced Practice Midwife; Visit Provider Advanced Practice Midwife
DX: Z34.93 Encounter for supervision of normal pregnancy, unspecified, third trimester (principal); N89.8 Other specified noninflammatory disorders of vagina
CPT/HCPCS: 84112; 87480; 87510; 87660

== ENCOUNTER 2023-10-11 10:21 | Outpatient (CLI) | payer MEDICAID, SELFPAY ==
[2023-10-11 10:26] VITALS: BP 141/78; PULSE 62; TEMP 36.6
[2023-10-11 10:58] VITALS: BP 141/78; PULSE 62
[2023-10-11 11:28] VITALS: BP 126/65; PULSE 70
[2023-10-11 11:28] LABS: HCT 37.1 % (36.0-46.0); HGB 12.3 g/dL (11.2-15.7); MCH 31.4 pg (27.0-33.0); MCHC 33.2 % (32.0-36.0); MCV 95 fL (80-95); MPV 11.8 fL (8.0-11.0); Platelet Count 211 10^3/uL (130-400); RBC 3.92 10^6/uL (3.93-5.22); RDW 12.5 % (11.7-14.6); RDW-SD 43.1 fL; WBC 11.52 10^3/uL (4.4-10.8)
[2023-10-11 11:44] LABS: ALT 20 U/L (14-59); AST 23 U/L (15-37); Albumin 2.9 g/dL (3.4-5.0); Alkaline Phosphatase 195 U/L (46-116); Anion Gap 10.3 mmol/L (3-11); BUN 11 mg/dL (7-18); Bilirubin, Total 0.4 mg/dL (0.2-1.0); CO2 24.7 mmol/L (21.0-32.0); CREATININE 0.8 mg/dL (0.55-1.02); Calcium 9.5 mg/dL (8.5-10.1); Chloride 99 mmol/L (98-107); Estimated GFR 105.45 (mL/min/1.73m2); Glucose 77 mg/dL (74-106); Potassium 3.8 mmol/L (3.5-5.1); Sodium 134 mmol/L (136-145); Total Protein 7.2 g/dL (6.4-8.2)
[2023-10-11 11:50] LABS: COMMENT (LAB VIEW ONLY) 49.56 mg/dL; PROTEIN 8.6 mg/dL; Prot/Crea Ur Ratio 0.17
--- NOTE | 2023-10-11 12:06 | W.OBNST ---
Date of service: 10/11/23 Time of Service: 12:06 NST Evaluation Reason for NST Reasons for Nonstress Test: GESTATIONAL HYPERTENSION Gestational Age Gestational Age in Weeks and Days: 39 Weeks and 0Days Test and Monitor Explained Test/Monitor Explained: Test Explained, Monitor Explained and Patient Verbalized Understanding Vital Signs Blood Pressure: 126/65 Pulse: 62 Temperature: 97.9 F Urine Results Urine Protein: Negative NST Information Date on Monitor: 10/11/23 Time on Monitor: 10:20 Date off Monitor: 10/11/23 Time off Monitor: 10:49 Total Time on Monitor: 29 NST Interventions: PO Hydration Contraction Frequency: irreg, mild Comments: pt hungry, had saltines and butter, appears calm and in no acute distress NST Evaluation Patient States Movement: Present FHR Baseline: 120 Variability: Moderate 6-25 bpm Accelerations: 15x15 Decelerations: None NST Results: Reactive Note Ultrasound Done: N/A. NST Note Note: Cvx ft/80% posterior, vtx -2/-3, intact membranes Used nitrous for exam. Patellar reflexes +1, no clonus, trace pedal edema HTN labs drawn, all WNL RTO 3 days for BP recheck and NST IOL for continued BP elevations discussed with pt NST Reviewed and Verified by: Heather Lucero
[2023-10-11 12:11] VITALS: BP 126/65; PULSE 62; TEMP 36.6
== END 2023-10-11 12:02 | disposition home or self-care (01) ==
LOC: BCD 10:22 → OBS 10:24
PROVIDERS: Visit Provider Advanced Practice Midwife
DX: O13.3 Gestational [pregnancy-induced] hypertension without significant proteinuria, third trimester (principal); Z3A.39 39 weeks gestation of pregnancy
CPT/HCPCS: 36415; 80053; 85027; 59025; 82565; 84156; 84550

== ENCOUNTER 2023-10-12 14:50 | Outpatient (CLI) | payer MEDICAID, SELFPAY ==
[2023-10-12 16:24] VITALS: BP 138/82; PULSE 93; TEMP 36.6
[2023-10-12 16:26] VITALS: BP 138/82; PULSE 93
[2023-10-12 16:47] VITALS: BP 134/83; PULSE 76
[2023-10-12 17:18] LABS: HCT 34.8 % (36.0-46.0); HGB 11.5 g/dL (11.2-15.7); MCH 30.9 pg (27.0-33.0); MCV 94 fL (80-95); MPV 11.5 fL (8.0-11.0); Platelet Count 203 10^3/uL (130-400); RBC 3.72 10^6/uL (3.93-5.22); RDW 12.7 % (11.7-14.6); RDW-SD 42.9 fL; WBC 9.16 10^3/uL (4.4-10.8)
[2023-10-12] MEDS: Acetaminophen 500 MG TAB 1000 MG PO (17:19)
[2023-10-12 17:31] LABS: Uric Acid 5.3 mg/dL (2.6-6.0)
[2023-10-12 17:32] LABS: ALT 19 U/L (14-59); AST 20 U/L (15-37); Albumin 2.6 g/dL (3.4-5.0); Alkaline Phosphatase 179 U/L (46-116); Anion Gap 9.2 mmol/L (3-11); BUN 10 mg/dL (7-18); Bilirubin, Total 0.4 mg/dL (0.2-1.0); CO2 25.8 mmol/L (21.0-32.0); CREATININE 0.8 mg/dL (0.55-1.02); Calcium 10.4 mg/dL (8.5-10.1); Chloride 102 mmol/L (98-107); Estimated GFR 105.45 (mL/min/1.73m2); Glucose 84 mg/dL (74-106); Potassium 3.6 mmol/L (3.5-5.1); Sodium 137 mmol/L (136-145); Total Protein 6.6 g/dL (6.4-8.2)
[2023-10-12 18:03] LABS: COMMENT (LAB VIEW ONLY) 100.29 mg/dL; PROTEIN 14.7 mg/dL; Prot/Crea Ur Ratio 0.14
--- NOTE | 2023-10-12 18:59 | W.OBNST ---
Date of service: 10/12/23 Time of Service: 18:59 NST Evaluation Reason for NST Reasons for Nonstress Test: GESTATIONAL HYPERTENSION Reason for NST Other: hx maternal anxiety & panic attacks Gestational Age Gestational Age in Weeks and Days: 39 Weeks and 1Days Test and Monitor Explained Test/Monitor Explained: Test Explained and Monitor Explained Vital Signs Blood Pressure: 138/82 Pulse: 93 Temperature: 97.9 F Urine Results Urine Protein: Negative Urine Ketones: Negative Urine Glucose: Negative Urine Blood: Negative NST Information Date on Monitor: 10/12/23 Time on Monitor: 16:22 Date off Monitor: 10/12/23 Time off Monitor: 16:55 Total Time on Monitor: 33 NST Interventions: PO Hydration Contraction Frequency: 0 NST Evaluation Patient States Movement: Present FHR Baseline: 135 Variability: Moderate 6-25 bpm Accelerations: 15x15 Decelerations: None NST Results: Reactive Note Ultrasound Done: N/A. NST Note Note: BP 130's over 80's x2, has mild headache today relieved with tylenol HTN labs repeated today and all nml Trace edema noted, DTR's +1 Pt already scheduled for NST and BP check in 2 days Offered to pt to remain for overnight observation, she declines and wishes to go home NST Reviewed and Verified by: Heather Lucero
[2023-10-12 19:03] VITALS: BP 138/82; PULSE 93; TEMP 36.6
== END 2023-10-12 18:45 | disposition home or self-care (01) ==
LOC: BCD 16:14 → OBS 16:18
PROVIDERS: Visit Provider Advanced Practice Midwife
DX: O13.3 Gestational [pregnancy-induced] hypertension without significant proteinuria, third trimester (principal); Z3A.39 39 weeks gestation of pregnancy
CPT/HCPCS: 80053; 85027; 59025; 82565; 84156; 84550

== ENCOUNTER 2023-10-14 07:19 | Outpatient (CLI) | payer MEDICAID, SELFPAY ==
--- NOTE | 2023-10-14 11:00 | W.OBNST ---
Date of service: 10/14/23 Time of Service: 11:00 NST Evaluation Reason for NST Reasons for Nonstress Test: GESTATIONAL HYPERTENSION Gestational Age Gestational Age in Weeks and Days: 39 Weeks and 3Days Test and Monitor Explained Test/Monitor Explained: Test Explained, Monitor Explained and Patient Verbalized Understanding NST Information Date on Monitor: 10/14/23 Time on Monitor: 09:45 Date off Monitor: 10/14/23 Time off Monitor: 10:45 Total Time on Monitor: 60 NST Interventions: None NST Evaluation Patient States Movement: Present FHR Baseline: 145 Variability: Moderate 6-25 bpm Accelerations: 15x15 Decelerations: None NST Results: Reactive Note Ultrasound Done: N/A. NST Note Note: BP stable, denies signs of pre-eclampsia. Margy is hoping for induction of labor but is fearful. I reviewed options of induction for GHTN and that it is recommended to be done. I reviewed expectant management, screening and scheduling induction in the next week VS this weekend. She prefer to move forward with induction this evening but go home to gather her things and come back around 6pm. Plan will be cervical ripening first as discussed with patient. I spoke with Dr. Saunders on 10/13/23 about possible induction for Margy today and she agreed with CN plan. [place] NST Reviewed and Verified by: Irene Simmons
== END 2023-10-14 10:55 | disposition home or self-care (01) ==
LOC: BCD 07:22 → OBS 09:58
PROVIDERS: Visit Provider Advanced Practice Midwife
DX: O13.3 Gestational [pregnancy-induced] hypertension without significant proteinuria, third trimester (principal); Z3A.39 39 weeks gestation of pregnancy
CPT/HCPCS: 59025

== ENCOUNTER 2023-10-14 17:38 | Inpatient (IN) | payer MEDICAID, SELFPAY ==
[2023-10-14 18:20] VITALS: BP 141/96; PULSE 84
[2023-10-14 18:40] LABS: HCT 32.7 % (36.0-46.0); HGB 10.9 g/dL (11.2-15.7); MCH 30.9 pg (27.0-33.0); MCHC 33.3 % (32.0-36.0); MCV 93 fL (80-95); MPV 11.3 fL (8.0-11.0); Platelet Count 195 10^3/uL (130-400); RBC 3.53 10^6/uL (3.93-5.22); RDW 12.7 % (11.7-14.6); RDW-SD 42.3 fL; WBC 9.95 10^3/uL (4.4-10.8)
[2023-10-14 18:43] VITALS: BP 139/91; PULSE 83
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
[2023-10-14 18:51] LABS: COMMENT (LAB VIEW ONLY) 172.39 mg/dL; PROTEIN 32.7 mg/dL; Prot/Crea Ur Ratio 0.18
[2023-10-14 18:56] LABS: ALT 19 U/L (14-59); AST 23 U/L (15-37); Albumin 2.6 g/dL (3.4-5.0); Alkaline Phosphatase 177 U/L (46-116); Anion Gap 9.8 mmol/L (3-11); BUN 10 mg/dL (7-18); Bilirubin, Total 0.3 mg/dL (0.2-1.0); CO2 23.2 mmol/L (21.0-32.0); CREATININE 0.8 mg/dL (0.55-1.02); Calcium 9.7 mg/dL (8.5-10.1); Chloride 104 mmol/L (98-107); Estimated GFR 105.45 (mL/min/1.73m2); Glucose 84 mg/dL (74-106); Potassium 3.6 mmol/L (3.5-5.1); Sodium 137 mmol/L (136-145); Total Protein 6.5 g/dL (6.4-8.2)
[2023-10-14 19:23] VITALS: BP 142/82; PULSE 78; RESP 16; TEMP 36.7
[2023-10-14] MEDS: Lactated Ringers 500 ML IV (20:10)
[2023-10-14 20:19] VITALS: BP 142/82; PULSE 78
[2023-10-14] MEDS: miSOPROStol 25 MCG TAB 50 MCG PO (21:08)
[2023-10-15] VITALS (60 sets, daily range): BP systolic 125–202; BP diastolic 62–114; PULSE 64–162; RESP 16–18; TEMP 36.5–37; O2SAT 93–100
--- NOTE | 2023-10-15 01:37 | W.PM.OBNL1 ---
Date of service: 10/15/23 Time of Service: 01:37 Informed Consent Informed Consent: Augmentation of Labor, Induction of Labor and Risk,Benefits,Alternatives Discussed Pelvic Exam Comments: VE deferred Contractions Monitor Mode: External Contraction Frequency(min): 2-4 Contraction Duration(sec): 50-80 Intensity: Moderate Fetus A Monitor: External (US) Heart Rate Baseline: 120 Variability: Moderate (6-25 BPM) Categories: Category I Accelerations: Present Decelerations: None Assessment and Plan Assessment and plan (1) Encounter for planned induction of labor: Status: Acute Assessment and plan: 1. Continue present management, hold next dose of misoprostol at this time unless contractions space out or become less intense 2. reassess in 2-4 hours or prn. Objective Abnormal lab results 10/14/23 Range/Units 18:20 RBC 3.53 L (3.93-5.22) 10^6/uL Hgb 10.9 L (11.2-15.7) g/dL Hct 32.7 L (36.0-46.0) % MPV 11.3 H (8.0-11.0) fL Alkaline Phosphatase 177 H (46-116) U/L Albumin 2.6 L (3.4-5.0) g/dL Temp Pulse Resp BP 97.9 F 64 16 138/91 H 10/15/23 01:15 10/15/23 01:15 10/15/23 01:15 10/15/23 01:15 Laboratory Results WBC 9.95 10^3/uL (4.4-10.8) 10/14/23 18:20 RBC 3.53 10^6/uL (3.93-5.22) L 10/14/23 18:20 Hgb 10.9 g/dL (11.2-15.7) L 10/14/23 18:20 Hct 32.7 % (36.0-46.0) L 10/14/23 18:20 MCV 93 fL (80-95) 10/14/23 18:20 MCH 30.9 pg (27.0-33.0) 10/14/23 18:20 MCHC 33.3 % (32.0-36.0) 10/14/23 18:20 RDW 12.7 % (11.7-14.6) 10/14/23 18:20 Plt Count 195 10^3/uL (130-400) 10/14/23 18:20 MPV 11.3 fL (8.0-11.0) H 10/14/23 18:20 Sodium 137 mmol/L (136-145) 10/14/23 18:20 Potassium 3.6 mmol/L (3.5-5.1) 10/14/23 18:20 Chloride 104 mmol/L (98-107) 10/14/23 18:20 Carbon Dioxide 23.2 mmol/L (21.0-32.0) 10/14/23 18:20 Anion Gap 9.8 mmol/L (3-11) 10/14/23 18:20 BUN 10 mg/dL (7-18) 10/14/23 18:20 Creatinine 0.8 mg/dL (0.55-1.02) 10/14/23 18:20 Est GFR (CKD-EPI 2020) 105.45 (mL/min/1.73m2) 10/14/23 18:20 Glucose 84 mg/dL (74-106) 10/14/23 18:20 Calcium 9.7 mg/dL (8.5-10.1) 10/14/23 18:20 Total Bilirubin 0.3 mg/dL (0.2-1.0) 10/14/23 18:20 AST 23 U/L (15-37) 10/14/23 18:20 ALT 19 U/L (14-59) 10/14/23 18:20 Alkaline Phosphatase 177 U/L (46-116) H 10/14/23 18:20 Total Protein 6.5 g/dL (6.4-8.2) 10/14/23 18:20 Albumin 2.6 g/dL (3.4-5.0) L 10/14/23 18:20 Ur Random Creatinine 172.39 mg/dL 10/14/23 18:20 U Random Total Protein 32.7 mg/dL 10/14/23 18:20 U [place] Prot/Creat Ratio 0.18 10/14/23 18:20 Patient ABO/Rh O Negative 10/14/23 18:20 Antibody Screen POSITIVE 10/14/23 18:20 Antibody Identification Anti-D 10/14/23 18:20 Subjective Interval history since last seen: Margy is uncomfortable with contractions but working through them well. Results Hemoglobin/Hematocrit: Hgb 10.9 g/dL (11.2-15.7) L 10/14/23 18:20 Hct 32.7 % (36.0-46.0) L 10/14/23 18:20 Abnormal Lab Findings: Abnormal Labs 10/14/23 18:20 RBC 3.53 L Hgb 10.9 L Hct 32.7 L MPV 11.3 H Alkaline Phosphatase 177 H Albumin 2.6 L
[2023-10-15] MEDS: Lactated Ringers 1,000 ML 200 ML IV (02:45)
--- NOTE | 2023-10-15 04:00 | PGE_ITS ---
Date of service: 10/15/23 Time of Service: 03:45 Informed Consent Informed Consent: Augmentation of Labor, Induction of Labor and Risk,Benefits,Alternatives Discussed Pelvic Exam Dilation: 3.5 Effacement (%): 90 station: -2 Position: LALO Cervix Position: mid Consistency: soft Contractions Monitor Mode: External Contraction Frequency(min): 2-2.5 Contraction Duration(sec): 50-70 Intensity: Moderate/Strong Fetus A Monitor: External (US) Heart Rate Baseline: 120 Variability: Moderate (6-25 BPM) Categories: Category I Accelerations: 15 X 15 Decelerations: None Amniotic Membrane Status: Intact (bulging) Assessment and Plan Assessment and plan (1) Encounter for planned induction of labor: Status: Acute Assessment and plan: 1. Continue present management, support offered and has good support from family 2. Re assess in 2-4 hours or prn, VE if needed but will limit exams for patient comfort unless indicated by maternal status. 3. Expect NVD. KH Objective Abnormal lab results 10/14/23 Range/Units 18:20 RBC 3.53 L (3.93-5.22) 10^6/uL Hgb 10.9 L (11.2-15.7) g/dL Hct 32.7 L (36.0-46.0) % MPV 11.3 H (8.0-11.0) fL Alkaline Phosphatase 177 H (46-116) U/L Albumin 2.6 L (3.4-5.0) g/dL Temp Pulse Resp BP 97.9 F 64 16 138/91 H 10/15/23 01:15 10/15/23 01:15 10/15/23 01:15 10/15/23 01:15 Laboratory Results WBC 9.95 10^3/uL (4.4-10.8) 10/14/23 18:20 RBC 3.53 10^6/uL (3.93-5.22) L 10/14/23 18:20 Hgb 10.9 g/dL (11.2-15.7) L 10/14/23 18:20 Hct 32.7 % (36.0-46.0) L 10/14/23 18:20 MCV 93 fL (80-95) 10/14/23 18:20 MCH 30.9 pg (27.0-33.0) 10/14/23 18:20 MCHC 33.3 % (32.0-36.0) 10/14/23 18:20 RDW 12.7 % (11.7-14.6) 10/14/23 18:20 Plt Count 195 10^3/uL (130-400) 10/14/23 18:20 MPV 11.3 fL (8.0-11.0) H 10/14/23 18:20 Sodium 137 mmol/L (136-145) 10/14/23 18:20 Potassium 3.6 mmol/L (3.5-5.1) 10/14/23 18:20 Chloride 104 mmol/L (98-107) 10/14/23 18:20 Carbon Dioxide 23.2 mmol/L (21.0-32.0) 10/14/23 18:20 Anion Gap 9.8 mmol/L (3-11) 10/14/23 18:20 BUN 10 mg/dL (7-18) 10/14/23 18:20 Creatinine 0.8 mg/dL (0.55-1.02) 10/14/23 18:20 Est GFR (CKD-EPI 2020) 105.45 (mL/min/1.73m2) 10/14/23 18:20 Glucose 84 mg/dL (74-106) 10/14/23 18:20 Calcium 9.7 mg/dL (8.5-10.1) 10/14/23 18:20 Total Bilirubin 0.3 mg/dL (0.2-1.0) 10/14/23 18:20 AST 23 U/L (15-37) 10/14/23 18:20 ALT 19 U/L (14-59) 10/14/23 18:20 Alkaline Phosphatase 177 U/L (46-116) H 10/14/23 18:20 Total Protein 6.5 g/dL (6.4-8.2) 10/14/23 18:20 Albumin 2.6 g/dL (3.4-5.0) L 10/14/23 18:20 Ur Random Creatinine 172.39 mg/dL 10/14/23 18:20 U Random Total Protein 32.7 mg/dL 10/14/23 18:20 U [place] Prot/Creat Ratio 0.18 10/14/23 18:20 Patient ABO/Rh O Negative 10/14/23 18:20 Antibody Screen POSITIVE 10/14/23 18:20 Antibody Identification Anti-D 10/14/23 18:20 Subjective Interval history since last seen: Margy Cervantes is working well with her contractions, using nitrous sometimes and has excellent support of her family. She requested VE and did well with the exam. Results Hemoglobin/Hematocrit: Hgb 10.9 g/dL (11.2-15.7) L 10/14/23 18:20 Hct 32.7 % (36.0-46.0) L 10/14/23 18:20 Abnormal Lab Findings: Abnormal Labs 10/14/23 18:20 RBC 3.53 L Hgb 10.9 L Hct 32.7 L MPV 11.3 H Alkaline Phosphatase 177 H Albumin 2.6 L
--- NOTE | 2023-10-15 08:26 | PGE_ITS ---
Date of service: 10/15/23 Time of Service: 08:26 Informed Consent Informed Consent: Augmentation of Labor, Induction of Labor and Risk,Benefits,Alternatives Discussed Pelvic Exam Dilation: 5 Effacement (%): 100 station: -1 Cervix Position: mid Consistency: soft Contractions Monitor Mode: External Contraction Frequency(min): 2-3 Contraction Duration(sec): 50-70 Intensity: Moderate/Strong Fetus A Monitor: External (US) (offered intermittent doppler, patient prefers EFM on) Heart Rate Baseline: 122 Variability: Moderate (6-25 BPM) Categories: Category I Accelerations: Present Decelerations: None Amniotic Membrane Status: Intact (offered AROM, patient declines at this time) Assessment and Plan Assessment and plan (1) Encounter for planned induction of labor: Status: Acute Assessment and plan: 1. Billy Ji is doing very well with her labor, cervical change continues, will reassess in 4 hours or prn, consider AROM if desires 2. Expect NVD. Objective Abnormal lab results 10/14/23 Range/Units 18:20 RBC 3.53 L (3.93-5.22) 10^6/uL Hgb 10.9 L (11.2-15.7) g/dL Hct 32.7 L (36.0-46.0) % MPV 11.3 H (8.0-11.0) fL Alkaline Phosphatase 177 H (46-116) U/L Albumin 2.6 L (3.4-5.0) g/dL Temp Pulse Resp BP Pulse Ox 97.9 F 67 18 136/89 100 10/15/23 07:22 10/15/23 07:24 10/15/23 07:22 10/15/23 07:22 10/15/23 07:24 Laboratory Results WBC 9.95 10^3/uL (4.4-10.8) 10/14/23 18:20 RBC 3.53 10^6/uL (3.93-5.22) L 10/14/23 18:20 Hgb 10.9 g/dL (11.2-15.7) L 10/14/23 18:20 Hct 32.7 % (36.0-46.0) L 10/14/23 18:20 MCV 93 fL (80-95) 10/14/23 18:20 MCH 30.9 pg (27.0-33.0) 10/14/23 18:20 MCHC 33.3 % (32.0-36.0) 10/14/23 18:20 RDW 12.7 % (11.7-14.6) 10/14/23 18:20 Plt Count 195 10^3/uL (130-400) 10/14/23 18:20 MPV 11.3 fL (8.0-11.0) H 10/14/23 18:20 Sodium 137 mmol/L (136-145) 10/14/23 18:20 Potassium 3.6 mmol/L (3.5-5.1) 10/14/23 18:20 Chloride 104 mmol/L (98-107) 10/14/23 18:20 Carbon Dioxide 23.2 mmol/L (21.0-32.0) 10/14/23 18:20 Anion Gap 9.8 mmol/L (3-11) 10/14/23 18:20 BUN 10 mg/dL (7-18) 10/14/23 18:20 Creatinine 0.8 mg/dL (0.55-1.02) 10/14/23 18:20 Est GFR (CKD-EPI 2020) 105.45 (mL/min/1.73m2) 10/14/23 18:20 Glucose 84 mg/dL (74-106) 10/14/23 18:20 Calcium 9.7 mg/dL (8.5-10.1) 10/14/23 18:20 Total Bilirubin 0.3 mg/dL (0.2-1.0) 10/14/23 18:20 AST 23 U/L (15-37) 10/14/23 18:20 ALT 19 U/L (14-59) 10/14/23 18:20 Alkaline Phosphatase 177 U/L (46-116) H 10/14/23 18:20 Total Protein 6.5 g/dL (6.4-8.2) 10/14/23 18:20 Albumin 2.6 g/dL (3.4-5.0) L 10/14/23 18:20 Ur Random Creatinine 172.39 mg/dL 10/14/23 18:20 U Random Total Protein 32.7 mg/dL 10/14/23 18:20 U [place] Prot/Creat Ratio 0.18 10/14/23 18:20 Patient ABO/Rh O Negative 10/14/23 18:20 Antibody Screen POSITIVE 10/14/23 18:20 Antibody Identification Anti-D 10/14/23 18:20 Subjective Interval history since last seen: Feels like she is making progress, has had a little show. Requested VE, she tolerated it well without need for nitrous Results Hemoglobin/Hematocrit: Hgb 10.9 g/dL (11.2-15.7) L 10/14/23 18:20 Hct 32.7 % (36.0-46.0) L 10/14/23 18:20 Abnormal Lab Findings: Abnormal Labs 10/14/23 18:20 RBC 3.53 L Hgb 10.9 L Hct 32.7 L MPV 11.3 H Alkaline Phosphatase 177 H Albumin 2.6 L
--- NOTE | 2023-10-15 11:37 | W.PM.OBNL1 ---
Date of service: 10/15/23 Time of Service: 11:37 Informed Consent Informed Consent: Augmentation of Labor, Induction of Labor and Risk,Benefits,Alternatives Discussed Pelvic Exam Dilation: 7 Effacement (%): 0 station: -1 Cervix Position: mid Consistency: soft Contractions Monitor Mode: External Contraction Frequency(min): 3-4 Contraction Duration(sec): 50-70 Intensity: Moderate/Strong Fetus A Monitor: External (US) Heart Rate Baseline: 130 Variability: Moderate (6-25 BPM) Categories: Category I Accelerations: 15 X 15 Decelerations: None Amniotic Membrane Status: Ruptured Rupture Method: Artifical Amniotic Fluid: Clear Amount: moderate Date of Membrane Rupture: 10/15/23 Time of Membrane Rupture: 11:32 Assessment and Plan Assessment and plan (1) Encounter for planned induction of labor: Status: Acute Assessment and plan: 1. AROM per patient request, continue current pain management plans 2. Expect NVD Objective Abnormal lab results 10/14/23 Range/Units 18:20 RBC 3.53 L (3.93-5.22) 10^6/uL Hgb 10.9 L (11.2-15.7) g/dL Hct 32.7 L (36.0-46.0) % MPV 11.3 H (8.0-11.0) fL Alkaline Phosphatase 177 H (46-116) U/L Albumin 2.6 L (3.4-5.0) g/dL Temp Pulse Resp BP Pulse Ox 98.6 F 94 H 16 125/76 100 10/15/23 11:25 10/15/23 11:24 10/15/23 09:50 10/15/23 11:24 10/15/23 07:24 Laboratory Results WBC 9.95 10^3/uL (4.4-10.8) 10/14/23 18:20 RBC 3.53 10^6/uL (3.93-5.22) L 10/14/23 18:20 Hgb 10.9 g/dL (11.2-15.7) L 10/14/23 18:20 Hct 32.7 % (36.0-46.0) L 10/14/23 18:20 MCV 93 fL (80-95) 10/14/23 18:20 MCH 30.9 pg (27.0-33.0) 10/14/23 18:20 MCHC 33.3 % (32.0-36.0) 10/14/23 18:20 RDW 12.7 % (11.7-14.6) 10/14/23 18:20 Plt Count 195 10^3/uL (130-400) 10/14/23 18:20 MPV 11.3 fL (8.0-11.0) H 10/14/23 18:20 Sodium 137 mmol/L (136-145) 10/14/23 18:20 Potassium 3.6 mmol/L (3.5-5.1) 10/14/23 18:20 Chloride 104 mmol/L (98-107) 10/14/23 18:20 Carbon Dioxide 23.2 mmol/L (21.0-32.0) 10/14/23 18:20 Anion Gap 9.8 mmol/L (3-11) 10/14/23 18:20 BUN 10 mg/dL (7-18) 10/14/23 18:20 Creatinine 0.8 mg/dL (0.55-1.02) 10/14/23 18:20 Est GFR (CKD-EPI 2020) 105.45 (mL/min/1.73m2) 10/14/23 18:20 Glucose 84 mg/dL (74-106) 10/14/23 18:20 Calcium 9.7 mg/dL (8.5-10.1) 10/14/23 18:20 Total Bilirubin 0.3 mg/dL (0.2-1.0) 10/14/23 18:20 AST 23 U/L (15-37) 10/14/23 18:20 ALT 19 U/L (14-59) 10/14/23 18:20 Alkaline Phosphatase 177 U/L (46-116) H 10/14/23 18:20 Total Protein 6.5 g/dL (6.4-8.2) 10/14/23 18:20 Albumin 2.6 g/dL (3.4-5.0) L 10/14/23 18:20 Ur Random Creatinine 172.39 mg/dL 10/14/23 18:20 U Random Total Protein 32.7 mg/dL 10/14/23 18:20 U [place] Prot/Creat Ratio 0.18 10/14/23 18:20 Patient ABO/Rh O Negative 10/14/23 18:20 Antibody Screen POSITIVE 10/14/23 18:20 Antibody Identification Anti-D 10/14/23 18:20 Vital Signs Reviewed: Yes Subjective Interval history since last seen: Billy requested VE and AROM as she feels contractions spaced out a little. She was in tub for a period of time with good relief. Has several family and friends who are attentive to her needs. Currently in bed using nitrous. KH Results Hemoglobin/Hematocrit: Hgb 10.9 g/dL (11.2-15.7) L 10/14/23 18:20 Hct 32.7 % (36.0-46.0) L 10/14/23 18:20 Abnormal Lab Findings: Abnormal Labs 10/14/23 18:20 RBC 3.53 L Hgb 10.9 L Hct 32.7 L MPV 11.3 H Alkaline Phosphatase 177 H Albumin 2.6 L
--- NOTE | 2023-10-15 14:13 | PGE_ITS ---
Date of service: 10/15/23 Time of Service: 14:13 Informed Consent Informed Consent: Augmentation of Labor, Induction of Labor and Risk,Benefits,Alternatives Discussed Contractions Monitor Mode: Palpation Contraction Frequency(min): 2-5 Contraction Duration(sec): 50-70 Intensity: Moderate/Strong Fetus A Assessment Note: currently off monitor in tub, FHR tracing CAT 1 prior to getting in tub Assessment and Plan Assessment and plan (1) Encounter for planned induction of labor: Status: Acute Assessment and plan: 1. Continue present management, if no cervical changes in next hour or so will consider augmentation with pitocin 2. Expect NVD. KH Objective Abnormal lab results 10/14/23 Range/Units 18:20 RBC 3.53 L (3.93-5.22) 10^6/uL Hgb 10.9 L (11.2-15.7) g/dL Hct 32.7 L (36.0-46.0) % MPV 11.3 H (8.0-11.0) fL Alkaline Phosphatase 177 H (46-116) U/L Albumin 2.6 L (3.4-5.0) g/dL Temp Pulse Resp BP Pulse Ox 97.7 F 99 H 16 155/89 H 100 10/15/23 13:01 10/15/23 13:01 10/15/23 09:50 10/15/23 13:01 10/15/23 07:24 Laboratory Results WBC 9.95 10^3/uL (4.4-10.8) 10/14/23 18:20 RBC 3.53 10^6/uL (3.93-5.22) L 10/14/23 18:20 Hgb 10.9 g/dL (11.2-15.7) L 10/14/23 18:20 Hct 32.7 % (36.0-46.0) L 10/14/23 18:20 MCV 93 fL (80-95) 10/14/23 18:20 MCH 30.9 pg (27.0-33.0) 10/14/23 18:20 MCHC 33.3 % (32.0-36.0) 10/14/23 18:20 RDW 12.7 % (11.7-14.6) 10/14/23 18:20 Plt Count 195 10^3/uL (130-400) 10/14/23 18:20 MPV 11.3 fL (8.0-11.0) H 10/14/23 18:20 Sodium 137 mmol/L (136-145) 10/14/23 18:20 Potassium 3.6 mmol/L (3.5-5.1) 10/14/23 18:20 Chloride 104 mmol/L (98-107) 10/14/23 18:20 Carbon Dioxide 23.2 mmol/L (21.0-32.0) 10/14/23 18:20 Anion Gap 9.8 mmol/L (3-11) 10/14/23 18:20 BUN 10 mg/dL (7-18) 10/14/23 18:20 Creatinine 0.8 mg/dL (0.55-1.02) 10/14/23 18:20 Est GFR (CKD-EPI 2020) 105.45 (mL/min/1.73m2) 10/14/23 18:20 Glucose 84 mg/dL (74-106) 10/14/23 18:20 Calcium 9.7 mg/dL (8.5-10.1) 10/14/23 18:20 Total Bilirubin 0.3 mg/dL (0.2-1.0) 10/14/23 18:20 AST 23 U/L (15-37) 10/14/23 18:20 ALT 19 U/L (14-59) 10/14/23 18:20 Alkaline Phosphatase 177 U/L (46-116) H 10/14/23 18:20 Total Protein 6.5 g/dL (6.4-8.2) 10/14/23 18:20 Albumin 2.6 g/dL (3.4-5.0) L 10/14/23 18:20 Ur Random Creatinine 172.39 mg/dL 10/14/23 18:20 U Random Total Protein 32.7 mg/dL 10/14/23 18:20 U [place] Prot/Creat Ratio 0.18 10/14/23 18:20 Patient ABO/Rh O Negative 10/14/23 18:20 Antibody Screen POSITIVE 10/14/23 18:20 Antibody Identification Anti-D 10/14/23 18:20 Subjective Interval history since last seen: Billy is back in tub for relief of contraction pain. She has some rectal pressure off and on but is able to talk and breath through contractions. Has excellent control and good support. KH Results Hemoglobin/Hematocrit: Hgb 10.9 g/dL (11.2-15.7) L 10/14/23 18:20 Hct 32.7 % (36.0-46.0) L 10/14/23 18:20 Abnormal Lab Findings: Abnormal Labs 10/14/23 18:20 RBC 3.53 L Hgb 10.9 L Hct 32.7 L MPV 11.3 H Alkaline Phosphatase 177 H Albumin 2.6 L
--- NOTE | 2023-10-15 14:36 | W.PM.OBNL1 ---
Date of service: 10/15/23 Time of Service: 14:36 Informed Consent Informed Consent: Augmentation of Labor, Induction of Labor and Risk,Benefits,Alternatives Discussed Pelvic Exam Dilation: 7.5 Effacement (%): 100 station: -1 Contractions Contraction Frequency(min): 2-5 Contraction Duration(sec): 50-60 Intensity: Moderate/Strong Fetus A Monitor: External (US) Heart Rate Baseline: 135 Assessment Note: tracing just being restarted after being in tub. Assessment and Plan Assessment and plan (1) Encounter for planned induction of labor: Status: Acute Assessment and plan: 1. Contractions have become slightly more irregular and not increasing in intensity. We discussed pitocin augmentation and patient agrees to this plan. IV will be restarted due to coming out while in tub. 2. Will augment with pitocin and once regular stronger contractions will reassess cervix for changes. 3. Continue to expect vaginal delivery Objective Abnormal lab results 10/14/23 Range/Units 18:20 RBC 3.53 L (3.93-5.22) 10^6/uL Hgb 10.9 L (11.2-15.7) g/dL Hct 32.7 L (36.0-46.0) % MPV 11.3 H (8.0-11.0) fL Alkaline Phosphatase 177 H (46-116) U/L Albumin 2.6 L (3.4-5.0) g/dL Temp Pulse Resp BP Pulse Ox 97.7 F 99 H 16 155/89 H 100 10/15/23 13:01 10/15/23 13:01 10/15/23 09:50 10/15/23 13:01 10/15/23 07:24 Laboratory Results WBC 9.95 10^3/uL (4.4-10.8) 10/14/23 18:20 RBC 3.53 10^6/uL (3.93-5.22) L 10/14/23 18:20 Hgb 10.9 g/dL (11.2-15.7) L 10/14/23 18:20 Hct 32.7 % (36.0-46.0) L 10/14/23 18:20 MCV 93 fL (80-95) 10/14/23 18:20 MCH 30.9 pg (27.0-33.0) 10/14/23 18:20 MCHC 33.3 % (32.0-36.0) 10/14/23 18:20 RDW 12.7 % (11.7-14.6) 10/14/23 18:20 Plt Count 195 10^3/uL (130-400) 10/14/23 18:20 MPV 11.3 fL (8.0-11.0) H 10/14/23 18:20 Sodium 137 mmol/L (136-145) 10/14/23 18:20 Potassium 3.6 mmol/L (3.5-5.1) 10/14/23 18:20 Chloride 104 mmol/L (98-107) 10/14/23 18:20 Carbon Dioxide 23.2 mmol/L (21.0-32.0) 10/14/23 18:20 Anion Gap 9.8 mmol/L (3-11) 10/14/23 18:20 BUN 10 mg/dL (7-18) 10/14/23 18:20 Creatinine 0.8 mg/dL (0.55-1.02) 10/14/23 18:20 Est GFR (CKD-EPI 2020) 105.45 (mL/min/1.73m2) 10/14/23 18:20 Glucose 84 mg/dL (74-106) 10/14/23 18:20 Calcium 9.7 mg/dL (8.5-10.1) 10/14/23 18:20 Total Bilirubin 0.3 mg/dL (0.2-1.0) 10/14/23 18:20 AST 23 U/L (15-37) 10/14/23 18:20 ALT 19 U/L (14-59) 10/14/23 18:20 Alkaline Phosphatase 177 U/L (46-116) H 10/14/23 18:20 Total Protein 6.5 g/dL (6.4-8.2) 10/14/23 18:20 Albumin 2.6 g/dL (3.4-5.0) L 10/14/23 18:20 Ur Random Creatinine 172.39 mg/dL 10/14/23 18:20 U Random Total Protein 32.7 mg/dL 10/14/23 18:20 U [place] Prot/Creat Ratio 0.18 10/14/23 18:20 Patient ABO/Rh O Negative 10/14/23 18:20 Antibody Screen POSITIVE 10/14/23 18:20 Antibody Identification Anti-D 10/14/23 18:20 Subjective Interval history since last seen: Out of tub and requesting VE. Contractions occasionally space out to 5 minutes apart. Results Hemoglobin/Hematocrit: Hgb 10.9 g/dL (11.2-15.7) L 10/14/23 18:20 Hct 32.7 % (36.0-46.0) L 10/14/23 18:20 Abnormal Lab Findings: Abnormal Labs 10/14/23 18:20 RBC 3.53 L Hgb 10.9 L Hct 32.7 L MPV 11.3 H Alkaline Phosphatase 177 H Albumin 2.6 L
[2023-10-15] MEDS: Oxytocin/Normal Saline 30 UNIT/500 ML BAG 2 UNITS IV (14:58)
[2023-10-15] MEDS: Lactated Ringers 1,000 ML 125 ML IV (15:00)
[2023-10-15] MEDS: Normal Saline Flush 10 ML SYR IVP ×2 (15:01→15:02)
--- NOTE | 2023-10-15 17:43 | W.PM.OBNL1 ---
Date of service: 10/15/23 Time of Service: 17:44 Informed Consent Informed Consent: Augmentation of Labor, Induction of Labor and Risk,Benefits,Alternatives Discussed Pelvic Exam Dilation: 9.75 station: 0 Contractions Monitor Mode: External Contraction Frequency(min): 2=4 Contraction Duration(sec): 50-70 Intensity: Moderate/Strong Fetus A Monitor: External (US) Heart Rate Baseline: 150 Variability: Moderate (6-25 BPM) Assessment and Plan Assessment and plan (1) Encounter for planned induction of labor: Status: Acute Assessment and plan: 1. Consult with Dr. Saunders done as patient is fatigued and having difficulty moving presenting part beyond 0 station 1a. MD recommends epidural if patient would agree and enema, information writer will review with patient and continue present management 1b. If no improvement in 30 minutes or patient refuses these measures information writer will call MD back and ask to attend for possible C/S for failure to descend. Objective Abnormal lab results 10/14/23 Range/Units 18:20 RBC 3.53 L (3.93-5.22) 10^6/uL Hgb 10.9 L (11.2-15.7) g/dL Hct 32.7 L (36.0-46.0) % MPV 11.3 H (8.0-11.0) fL Alkaline Phosphatase 177 H (46-116) U/L Albumin 2.6 L (3.4-5.0) g/dL Temp Pulse Resp BP Pulse Ox 97.7 F 93 H 16 137/82 100 10/15/23 13:01 10/15/23 16:55 10/15/23 09:50 10/15/23 16:55 10/15/23 15:38 Laboratory Results WBC 9.95 10^3/uL (4.4-10.8) 10/14/23 18:20 RBC 3.53 10^6/uL (3.93-5.22) L 10/14/23 18:20 Hgb 10.9 g/dL (11.2-15.7) L 10/14/23 18:20 Hct 32.7 % (36.0-46.0) L 10/14/23 18:20 MCV 93 fL (80-95) 10/14/23 18:20 MCH 30.9 pg (27.0-33.0) 10/14/23 18:20 MCHC 33.3 % (32.0-36.0) 10/14/23 18:20 RDW 12.7 % (11.7-14.6) 10/14/23 18:20 Plt Count 195 10^3/uL (130-400) 10/14/23 18:20 MPV 11.3 fL (8.0-11.0) H 10/14/23 18:20 Sodium 137 mmol/L (136-145) 10/14/23 18:20 Potassium 3.6 mmol/L (3.5-5.1) 10/14/23 18:20 Chloride 104 mmol/L (98-107) 10/14/23 18:20 Carbon Dioxide 23.2 mmol/L (21.0-32.0) 10/14/23 18:20 Anion Gap 9.8 mmol/L (3-11) 10/14/23 18:20 BUN 10 mg/dL (7-18) 10/14/23 18:20 Creatinine 0.8 mg/dL (0.55-1.02) 10/14/23 18:20 Est GFR (CKD-EPI 2020) 105.45 (mL/min/1.73m2) 10/14/23 18:20 Glucose 84 mg/dL (74-106) 10/14/23 18:20 Calcium 9.7 mg/dL (8.5-10.1) 10/14/23 18:20 Total Bilirubin 0.3 mg/dL (0.2-1.0) 10/14/23 18:20 AST 23 U/L (15-37) 10/14/23 18:20 ALT 19 U/L (14-59) 10/14/23 18:20 Alkaline Phosphatase 177 U/L (46-116) H 10/14/23 18:20 Total Protein 6.5 g/dL (6.4-8.2) 10/14/23 18:20 Albumin 2.6 g/dL (3.4-5.0) L 10/14/23 18:20 Ur Random Creatinine 172.39 mg/dL 10/14/23 18:20 U Random Total Protein 32.7 mg/dL 10/14/23 18:20 U [place] Prot/Creat Ratio 0.18 10/14/23 18:20 Patient ABO/Rh O Negative 10/14/23 18:20 Antibody Screen POSITIVE 10/14/23 18:20 Antibody Identification Anti-D 10/14/23 18:20 Subjective Interval history since last seen: Billy has been pushing for over one hour with anterior lip that reduces and then returns between contractions. She is becoming fatigued. I reviewed that her rectum is full of stool and that it may be part of the problem via telephone consult with Dr. Saunders. Dr. Gu recommends enema and epidural for pain management if patient agrees. Results Hemoglobin/Hematocrit: Hgb 10.9 g/dL (11.2-15.7) L 10/14/23 18:20 Hct 32.7 % (36.0-46.0) L 10/14/23 18:20 Abnormal Lab Findings: Abnormal Labs 10/14/23 18:20 RBC 3.53 L Hgb 10.9 L Hct 32.7 L MPV 11.3 H Alkaline Phosphatase 177 H Albumin 2.6 L
--- NOTE | 2023-10-15 19:19 | W.ANESNEU ---
Epidural/Spinal Catheter Date Performed: 10/15/23 Procedure Start: 18:46 Procedure Stop: 19:19 Requesting Provider: Irene Simmons Procedure Location: Obstetrics Reason Performed: Labor Epidural Standard Monitors Applied: Blood Pressure, SpO2 and See EMR for corresponding vital signs Patient Position: Sitting Sedation Given (Indicate Dose Given): No Sedation given Patient Mental Status: Awake Sterility: Hand Hygiene, Surgical Cap, Surgical Mask, Sterile Gloves, Sterile Drape/Sheet and Chlorhexidine Procedure Location: L3-L4 Interspace Epidural Needle: Tuohy 18 Gauge Needle Length: 3.5 Inch Needle Approach: Midline Epidural Procedure: Skin Prepped, Sterile Drape Placed, 1% Lidocaine to skin and subcutaneous tissue with 25G needle, Tuohy Needle placed, LASHAE to Saline Used, Epidural Catheter Placed, Negative Heme, Negative CSF Flow and Tuohy Needle Removed Catheter Placed?: Catheter Placed Test Dose (Indicate Dose Given): 3ml 1.5% Lidocaine with 1:200K Epinephrine Given and Negative Test Dose Loss of Resistance Depth (cm): 6 Catheter depth at skin (cm): 12 Dressing: [place] Dressing Placed, Mastisol Used and Dressing reinforced with Tape Epidural Provider Bolus (Indicate Dose Given): Total bolus dose given in 3-5 ml divided doses and Total Ropivacaine 0.1% with Fentanyl 2mcg/ml Given from pump. (ml) Dose:: Total 10ml given Additives (Indicate Dose Given ): None Infusion Medication: Medication Infusion Began Medication Infusion: Ropivacaine 0.1% with Fentanyl 2mcg/ml Maintenance Infusion Rate (ml/hour): 10 PCEA Bolus Dose (ml): 5 Block Level: N/A Paresthesia: None Ultrasound: Used to kaylen site Number of Attempts (See previous attempts in note section): 1 Procedure Tolerated: No Complications and Patient tolerated well Procedure Outcome: Successful Procedure Comment:: Concerned about scoliosis. Ultrasound confirms normal lumbar spine alignment and rotation. Nitrous used throughout procedure. No concerns. Nursing will educate on PCEA button as patient is now pushing. All questions answered. Performed By: Coleman Pierre
--- NOTE | 2023-10-15 22:13 | W.OBDELIVERY ---
Date of service: 10/15/23 Time of Service: 22:13 OB Labor/ Delivery Information Baby A Delivery Delivery Method: Spontaneaous Presentation: Cephalic Vertex Position: Left Occipital Anterior Cord Description-Baby A: 3 Vessels and Clamped/Cut Amniotic Fluid: Clear Estimated Blood Loss: 250 Delivery Outcome: Liveborn Infant Complications: none Note: Billy Ji presented in the evening of 10/14/23 for planned induction for gestational hypertension. She had a single dose of Misoprostol 50 mcg PO and went into labor. During the afternoon of 10/15/23 her contractions became less intense and frequent and Pitocin was started for labor augmentation at 7cm. She progressed to anterior lip with involuntary urge to push. After 1 hour of pushing with little descent screenplay writer consulted with Dr. Saunders about potential vacuum. As head was at 0 station, decision was to get epidural and see if patient can then push effectively. We also administered a fleets enema with some results due to full posterior vaginal vault. At approximately 1900 epidural was placed. Billy has a fair amount of relief of pain but continued to feel urge to push. She pushed well for 1 hour and brought baby to +2 but 30 minutes later she was unable to push hard and was not feeling as much pressure. FHR had been CAT I almost entire labor until epidural and then was often CAT II due to tachycardia or variable deceleration to 100. Dr. Saunders was again called and requested to attend at this time. She also notified pediatric provider that there may be OVD. When physician was at bedside, head was and was eminent so OVD was not performed. Billy pushed well and delivered a live male over intact perineum but 2nd degree vaginal laceration at 2118. Baby was brought to maternal abdomen by her reaching for her baby after shoulders delivered. Has was placed skin to skin and did well. We allowed for delayed cord clamping as baby was doing well. After baby was born, Pitocin was increased to PP rate. Positive family bonding noted. scores 8/9. After approximately 15 minutes of delayed cord clamping when pulsations ceased cord was clamped X 2 and then cut by FOBJeermy. Baby was brought to breast and nursed soon after delivery. Cord blood obtained. Placenta delivered via jacob mechanism, intact. Fundus firmed to U-2 with massage and IV fluid with pitocin infusing. EBL 250 cc. Vaginal laceration was infiltrated with 1% lidoaine and repared with 3.0 Vicryl with 4 running stitches. There is also a small hemostatic left labial abrasion that was left unrepaired. Sponge, needle and instrument count are correct. Mother and baby are in satisfactory condition. Expect 36-48 hour PP stay. They plan circumcision for their baby. Baby Elmer's weight 7lb 14.2 oz. Billy wants Nexplanon placed prior to discharge or at 2 week PP visit. Providers Doctor: Charo Saunders Nurse Adolescent Medicine Specialist: Irene Simmons Nurse: Irina Jade Nurse: Mindy Burgess Labor/Delivery Information Number of Babies in Womb: 1 Group Beta Strep: Negative Rubella Status: Immune Blood Type: O- Varicella Immunity: Immune Maternal Complications: Prolonged Second Stage(>2hrs) Shoulder Dystocia: No Stages of Labor ROM Baby A: 10/15/23 ROM Baby A: 11:32
[2023-10-15] MEDS: Docusate Sodium 100 MG CAP PO (22:30)
[2023-10-15] MEDS: Acetaminophen 325 MG TAB 650 MG PO (22:30)
[2023-10-15] MEDS: Dibucaine 1% 28 GM TUBE TP (22:30)
[2023-10-15] MEDS: Ibuprofen 600 MG TAB PO (22:52)
[2023-10-15] MEDS: Hamamelis Leaf/Glycerin 100 EACH BOX PR (22:52)
[2023-10-15] MEDS: diphenhydrAMINE 50 MG/ML VIAL 25 MG IVP (23:06)
[2023-10-16 02:00] VITALS: BP 132/74; PULSE 88; TEMP 36.9
[2023-10-16] MEDS: Calcium Carbonate *TUMS* 500 MG CHEW PO (03:08)
[2023-10-16 05:47] VITALS: BP 132/67; PULSE 65; RESP 16; TEMP 37; O2SAT 99
[2023-10-16 08:00] VITALS: BP 140/93; PULSE 80; RESP 12; TEMP 36.6
--- NOTE | 2023-10-16 08:44 | W.PM.OBPNV1 ---
Date of service: 10/16/23 Time of Service: 08:44 Assessment and Plan Assessment and plan (1) care following vaginal delivery: Status: Acute Assessment and plan: 1. Normal PP course to date, doing own ADL's, voiding without difficulty. BM after fleets during second stage. 2. Continue present management, consider discharge to home tomorrow. 3. Will arrange for PP Nexplanon before discharge or at 2 week PP visit. (2) Lactating mother: Status: Acute Assessment and plan: 1. Baby has nursed well several times, Billy is working with nursing staff to learn best techniques. 2. continue present management. Subjective Subjective Interval history: Billy is doing well this morning. Learning to breast feed. Doing her own ADL's without difficulty. Voiding without difficulty. [place] baby status: Nursing well (with support) and Rooming in [place] feeding status: Exclusively breast feeding Exam Physical Exam Vital signs: Temp Pulse Resp BP Pulse Ox 98.6 F 65 16 132/67 99 10/16/23 05:47 10/16/23 05:47 10/16/23 05:47 10/16/23 05:47 10/16/23 05:47 Vital Signs Reviewed: Yes Constitutional Constitutional: no acute distress, average body habitus and cooperative HEENT Exam HEENT Exam: Normal Neck Exam Neck Exam: Normal (normal visual inspection) Breast Exam normal: Breast Exam: Normal Nipple Exam: Normal Respiratory Exam Respiratory Exam: Normal Cardiovascular Exam Cardiovascular Exam: Normal Abdominal Exam Abdomen: Other (normal exam) Fundal Exam Fundus: Below Umbilicus and Firm Comment: small lochia noted. Rectal Exam Rectal Exam: Normal Exam Perineum: Bruising (faint bruising at vaginal introitus, some swelling but soft to touch), Intact, Normal and Repair Intact (vaginal sutures intact) Extremities Exam Extremity Exam: Normal (denies calf tenderness) and Full ROM Back/Spine/Pelvis Exam Back Exam: Normal Skin Exam Skin Exam: Normal Neurological Exam Neurological Exam: Normal Psychiatric Exam Psychiatric Exam: Normal (is anxious about breast feeding, needs a lot of reassurance) Results Hemoglobin/Hematocrit: Hgb 10.9 g/dL (11.2-15.7) L 10/14/23 18:20 Hct 32.7 % (36.0-46.0) L 10/14/23 18:20 Abnormal Lab Findings: Abnormal Labs 10/14/23 18:20 RBC 3.53 L Hgb 10.9 L Hct 32.7 L MPV 11.3 H Alkaline Phosphatase 177 H Albumin 2.6 L
[2023-10-16] MEDS: Acetaminophen 325 MG TAB 650 MG PO ×3 (08:45→21:26)
[2023-10-16] MEDS: Docusate Sodium 100 MG CAP PO ×2 (08:46→21:27)
[2023-10-16] MEDS: Ibuprofen 600 MG TAB PO ×3 (08:46→23:00)
[2023-10-16] MEDS: Calcium Carbonate *TUMS* 500 MG CHEW 1000 MG PO (11:24)
--- NOTE | 2023-10-16 14:57 | W.ANESPOSTOP ---
Postoperative Evaluation Date, Time and Location Date Performed: 10/16/23 Time Performed: 13:00 Patient Location: Obstetrics Vital Signs Most Recent Imported Vital Signs: Most Recent Vital Signs Temp Pulse Resp BP Pulse Ox 36.6 C 80 12 140/93 H 99 10/16/23 08:00 10/16/23 08:00 10/16/23 08:00 10/16/23 08:00 10/16/23 05:47 Pain Score Most Recent Pain Score: Most Recent Pain Score Pain Level 3 10/16/23 08:46 Assessment Mental Status: Awake (Alert & Oriented to Patient Baseline) Airway and Respiratory Function: Patent airway with normal (patient baseline) respiratory exam Cardiovascular Function: Hemodynamically Stable Hydration Status: Adequately Hydrated Nausea & Vomiting: No Nausea or Vomiting Pain: Pt. Denies Any Pain Peripheral Nerve Block: Patient did not receive a nerve block
[2023-10-16 16:52] VITALS: TEMP 37
[2023-10-16 17:00] VITALS: BP 146/94; PULSE 108; RESP 18; TEMP 37
[2023-10-16 19:45] VITALS: BP 126/83; PULSE 90; RESP 18; TEMP 36.8
[2023-10-16] MEDS: Hamamelis Leaf/Glycerin 100 EACH BOX PR (20:35)
[2023-10-16] MEDS: Lidocaine 1% Multi-Dose 20 ML VIAL IJ (20:38)
[2023-10-17] VITALS (7 sets, daily range): BP systolic 117–157; BP diastolic 77–94; PULSE 58–103; RESP 12–18; TEMP 36.8–37.1; O2SAT 97–98
[2023-10-17] MEDS: Acetaminophen 325 MG TAB 650 MG PO ×3 (01:51→19:59)
[2023-10-17] MEDS: Ibuprofen 600 MG TAB PO ×3 (05:01→21:33)
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
[2023-10-17 13:04] LABS: HCT 30.2 % (36.0-46.0); HGB 10.2 g/dL (11.2-15.7); MCH 31.6 pg (27.0-33.0); MCHC 33.8 % (32.0-36.0); MCV 94 fL (80-95); MPV 10.7 fL (8.0-11.0); Platelet Count 224 10^3/uL (130-400); RBC 3.23 10^6/uL (3.93-5.22); RDW 13.2 % (11.7-14.6); RDW-SD 45.3 fL; WBC 12.27 10^3/uL (4.4-10.8)
[2023-10-17 13:19] LABS: ALT 63 U/L (14-59); AST 100 U/L (15-37); Albumin 2.5 g/dL (3.4-5.0); Alkaline Phosphatase 139 U/L (46-116); BUN 10 mg/dL (7-18); Bilirubin, Total 0.3 mg/dL (0.2-1.0); CREATININE 0.7 mg/dL (0.55-1.02); Calcium 8.8 mg/dL (8.5-10.1); Chloride 106 mmol/L (98-107); Estimated GFR 123.78 (mL/min/1.73m2); Glucose 103 mg/dL (74-106); Sodium 141 mmol/L (136-145); Total Protein 6.4 g/dL (6.4-8.2); Uric Acid 4.9 mg/dL (2.6-6.0)
--- NOTE | 2023-10-17 15:01 | W.PM.OBPNV1 ---
Date of service: 10/17/23 Time of Service: 15:01 Assessment and Plan Assessment and plan (1) Preeclampsia: Status: Acute Assessment and plan: repeat preeclampsia labs tomorrow morning and consider discharge tomorrow if BP is stable. Subjective Subjective Patient comments: Pain well controlled [place] baby status: Doing well [place] feeding status: Exclusively breast feeding Exam Physical Exam Vital signs: Temp Pulse Resp BP Pulse Ox 98.8 F 80 12 142/90 H 99 10/17/23 12:49 10/17/23 12:49 10/17/23 12:49 10/17/23 12:49 10/16/23 05:47 Vital Signs Reviewed: Yes Narrative: BP has been elevated today. Preeclampsia labs show elevated liver enzymes. Consult with Dr Saunders who recommends that Billy stay for further observation overnight. Constitutional Constitutional: mild distress Comments: Billy is upset about the news that her discharge is cancelle. Extremities Exam Extremity Exam: Other (3+ reflexes. no clonus); negative Edema Results Hemoglobin/Hematocrit: Hgb 10.2 g/dL (11.2-15.7) L 10/17/23 12:55 Hct 30.2 % (36.0-46.0) L 10/17/23 12:55 Abnormal Lab Findings: Abnormal Labs 10/14/23 10/17/23 18:20 12:55 WBC 12.27 H RBC 3.53 L 3.23 L Hgb 10.9 L 10.2 L Hct 32.7 L 30.2 L MPV 11.3 H Anion Gap 12.0 H AST 100 H ALT 63 H Alkaline Phosphatase 177 H 139 H Albumin 2.6 L 2.5 L
[2023-10-17] MEDS: Milk of Magnesia 30 ML CUP PO (19:58)
[2023-10-17] MEDS: Docusate Sodium 100 MG CAP PO (19:58)
[2023-10-17] MEDS: Dibucaine 1% 28 GM TUBE TP (21:20)
[2023-10-18] VITALS (9 sets, daily range): BP systolic 127–152; BP diastolic 67–105; PULSE 72–77; RESP 16–20; TEMP 36.5–36.6; O2SAT 99
[2023-10-18] MEDS: Acetaminophen 325 MG TAB 650 MG PO ×3 (00:10→09:31)
[2023-10-18] MEDS: Ibuprofen 600 MG TAB PO ×2 (04:01→10:44)
[2023-10-18 07:30] LABS: ALT 60 U/L (14-59); AST 82 U/L (15-37); Albumin 2.5 g/dL (3.4-5.0); Alkaline Phosphatase 131 U/L (46-116); Anion Gap 12.6 mmol/L (3-11); BUN 8 mg/dL (7-18); Bilirubin, Total 0.3 mg/dL (0.2-1.0); CO2 22.4 mmol/L (21.0-32.0); CREATININE 0.8 mg/dL (0.55-1.02); Calcium 8.7 mg/dL (8.5-10.1); Chloride 107 mmol/L (98-107); Estimated GFR 105.45 (mL/min/1.73m2); Glucose 75 mg/dL (74-106); Potassium 3.9 mmol/L (3.5-5.1); Sodium 142 mmol/L (136-145); Total Protein 6.3 g/dL (6.4-8.2); Uric Acid 4.7 mg/dL (2.6-6.0)
[2023-10-18] MEDS: Docusate Sodium 100 MG CAP PO (08:11)
[2023-10-18] MEDS: Dibucaine 1% 28 GM TUBE TP (08:51)
[2023-10-18 10:07] LABS: Lab Add On Test DONE
[2023-10-18 10:10] LABS: Abs Immature Grans 0.18 10^3/uL (0.0-0.06); Absolute Basophil Count 0.08 10^3/uL (0.0-0.2); Absolute Lymphocyte Count 2.41 10^3/uL (1.2-3.4); Absolute Monocyte Count 0.82 10^3/uL (0.1-0.8); Absolute Neutrophil Count 6.99 10^3/uL (1.2-6.7); Basophils % 0.7; Eosinophils % 1.9; HCT 32.3 % (36.0-46.0); HGB 10.6 g/dL (11.2-15.7); Immature Grans % 1.7; Lymphocytes % 22.6; MCH 31.5 pg (27.0-33.0); MCHC 32.8 % (32.0-36.0); MCV 96 fL (80-95); MPV 11.1 fL (8.0-11.0); Monocytes % 7.7; Neutrophils % 65.4; Platelet Count 237 10^3/uL (130-400); RBC 3.37 10^6/uL (3.93-5.22); RDW 13.7 % (11.7-14.6); RDW-SD 46.9 fL; WBC 10.68 10^3/uL (4.4-10.8)
[2023-10-18] MEDS: Labetalol 100 MG TAB 200 MG PO (10:36)
[2023-10-18] MEDS: buPROPion 100 MG TAB PO (10:36)
[2023-10-18 11:10] LABS: COMMENT (LAB VIEW ONLY) 36.75 mg/dL; PROTEIN 11.1 mg/dL
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
== END 2023-10-18 15:25 | disposition home or self-care (01) | DRG 806 ==
PROVIDERS: Advanced Practice Midwife; Admitting Provider Advanced Practice Midwife; Visit Provider Advanced Practice Midwife
DX: O13.4 Gestational [pregnancy-induced] hypertension without significant proteinuria, complicating childbirth (principal); O36.0930 Maternal care for other rhesus isoimmunization, third trimester, not applicable or unspecified; Z37.0 Single live birth; Z3A.39 39 weeks gestation of pregnancy; O14.25 HELLP syndrome, complicating the puerperium; O70.0 First degree perineal laceration during delivery; O99.62 Diseases of the digestive system complicating childbirth; K59.00 Constipation, unspecified; F43.10 Post-traumatic stress disorder, unspecified; O99.344 Other mental disorders complicating childbirth; M41.9 Scoliosis, unspecified; F41.0 Panic disorder [episodic paroxysmal anxiety]; K21.9 Gastro-esophageal reflux disease without esophagitis; F33.41 Major depressive disorder, recurrent, in partial remission; E55.9 Vitamin D deficiency, unspecified; F40.10 Social phobia, unspecified; Z83.49 Family history of other endocrine, nutritional and metabolic diseases; O75.89 Other specified complications of labor and delivery
CPT/HCPCS: 36415; 80053; 85027; 86850; 86900; 86901; 59200; 82565; 84156; 84550; 85025; 86870; J1200; J2003; J3490

== ENCOUNTER 2023-10-23 03:53 | Outpatient (CLI) | payer MEDICAID, SELFPAY ==
[2023-10-23 13:28] LABS: HCT 37.5 % (36.0-46.0); HGB 12.4 g/dL (11.2-15.7); MCH 31.5 pg (27.0-33.0); MCHC 33.1 % (32.0-36.0); MCV 95 fL (80-95); MPV 9.4 fL (8.0-11.0); Platelet Count 391 10^3/uL (130-400); RBC 3.94 10^6/uL (3.93-5.22); RDW 13.8 % (11.7-14.6); RDW-SD 47.8 fL; WBC 8.68 10^3/uL (4.4-10.8)
[2023-10-23 13:51] LABS: ALT 70 U/L (14-59); AST 37 U/L (15-37); Albumin 3.2 g/dL (3.4-5.0); Alkaline Phosphatase 135 U/L (46-116); Anion Gap 10.4 mmol/L (3-11); BUN 15 mg/dL (7-18); Bilirubin, Total 0.5 mg/dL (0.2-1.0); CO2 25.6 mmol/L (21.0-32.0); CREATININE 0.8 mg/dL (0.55-1.02); Calcium 9.2 mg/dL (8.5-10.1); Chloride 103 mmol/L (98-107); Estimated GFR 105.45 (mL/min/1.73m2); Glucose 118 mg/dL (74-106); Sodium 139 mmol/L (136-145); Total Protein 7.5 g/dL (6.4-8.2)
== END 2023-10-23 03:54 | disposition home or self-care (01) ==
LOC: LBO 03:53
PROVIDERS: Advanced Practice Midwife; Visit Provider Advanced Practice Midwife
DX: O16.5 Unspecified maternal hypertension, complicating the puerperium (principal)
CPT/HCPCS: 36415; 80053; 85027

== ENCOUNTER 2023-11-06 15:11 | Outpatient (CLI) | payer MEDICAID, SELFPAY ==
[2023-11-06 13:19] LABS: ALT 25 U/L (14-59); AST 18 U/L (15-37); Albumin 3.7 g/dL (3.4-5.0); Alkaline Phosphatase 121 U/L (46-116); Anion Gap 9.3 mmol/L (3-11); BUN 10 mg/dL (7-18); Bilirubin, Total 0.5 mg/dL (0.2-1.0); CO2 26.7 mmol/L (21.0-32.0); CREATININE 0.9 mg/dL (0.55-1.02); Calcium 9.4 mg/dL (8.5-10.1); Chloride 105 mmol/L (98-107); Estimated GFR 91.55 (mL/min/1.73m2); Glucose 83 mg/dL (74-106); Potassium 3.9 mmol/L (3.5-5.1); Sodium 141 mmol/L (136-145); Total Protein 7.7 g/dL (6.4-8.2)
== END 2023-11-06 15:12 | disposition home or self-care (01) ==
LOC: LBO 15:13
PROVIDERS: Visit Provider Advanced Practice Midwife
DX: O14.95 Unspecified pre-eclampsia, complicating the puerperium (principal); Z39.2 Encounter for routine postpartum follow-up
CPT/HCPCS: 36415; 80053

== ENCOUNTER 2023-11-27 09:20 | Outpatient (REF) | payer MEDICAID, SELFPAY ==
--- NOTE | 2023-11-27 08:50 | PAPFT_PTH ---
PATIENT: Shira Cabrales LOC: [facility] U#:[id number] AGE/SX: 23/ ROOM: RE11/27/[address]: Irene Simmons CNM : 2000 BED: DIS: 11/27/2023 SPEC #: [id number] RECD: 11/27/23 13:16 STATUS: ADRIAN REQ #: [id number] SILAS: 11/27/23 08:[address]: Irene Simmons DEPT: [facility] Cytology RECD BY: Serena Carey ENTERED: 11/27/23 13:16 SP TYPE: PAPFT OTHR DR: Unknown,Unknown Tissues: 1 - CX/ENDOCX FOR PAP SMEARS Procedures: PAP THIN PREP/UVM Screening Comments: [id number] (CHLAMYDIA/GC)
[2023-11-28 13:46] LABS: Chlamydia Result Negative (Negative); GC Result Negative (Negative)
== END 2023-11-27 09:21 | disposition home or self-care (01) ==
LOC: LBN 09:20
PROVIDERS: Visit Provider Advanced Practice Midwife
DX: Z12.4 Encounter for screening for malignant neoplasm of cervix (principal); R87.612 Low grade squamous intraepithelial lesion on cytologic smear of cervix (LGSIL); Z11.3 Encounter for screening for infections with a predominantly sexual mode of transmission
CPT/HCPCS: 87491; 87591; 88142

== ENCOUNTER 2024-02-14 11:41 | Outpatient (REF) | payer MEDICAID, SELFPAY | END 2024-02-14 11:42 | disposition home or self-care (01) | LOC: LBN 11:41 | PROVIDERS: PCP Family Medicine; Visit Provider Nurse Practitioner Women's Health | DX: N76.0 Acute vaginitis (principal); B96.89 Other specified bacterial agents as the cause of diseases classified elsewhere | CPT/HCPCS: 87480; 87510; 87660 ==

== ENCOUNTER 2024-03-06 15:55 | Outpatient (REF) | payer MEDICAID, SELFPAY | END 2024-03-06 15:56 | disposition home or self-care (01) | LOC: LBN 15:55 | PROVIDERS: PCP Family Medicine; Visit Provider Advanced Practice Midwife | DX: N89.8 Other specified noninflammatory disorders of vagina (principal) | CPT/HCPCS: 87480; 87510; 87660 ==

== ENCOUNTER 2024-12-25 12:18 | Outpatient (REF) | payer MEDICAID, SELFPAY | END 2024-12-25 12:19 | disposition home or self-care (01) | LOC: LBN 12:18 | PROVIDERS: PCP Family Medicine; Visit Provider Nurse Practitioner Women's Health | DX: N76.0 Acute vaginitis (principal); N89.8 Other specified noninflammatory disorders of vagina | CPT/HCPCS: 87480; 87510; 87660 ==

== ENCOUNTER 2025-06-20 13:56 | Outpatient (REF) | payer MEDICAID, SELFPAY ==
[2025-06-20 21:19] LABS: Abs Immature Grans 0.03 10^3/uL (0.0-0.06); HCT 39.3 % (36.0-46.0); HGB 13.4 g/dL (11.2-15.7); Immature Grans % 0.5 %; MCH 32.4 pg (27.0-33.0); MCHC 34.1 % (32.0-36.0); MCV 95 fL (80-95); MPV 10.7 fL (8.0-11.0); Platelet Count 281 10^3/uL (130-400); RBC 4.14 10^6/uL (3.93-5.22); RDW 11.8 % (11.7-14.6); RDW-SD 40.2 fL; WBC 6.53 10^3/uL (4.4-10.8)
[2025-06-20 21:21] LABS: ESR 2 mm/hr (0-20)
[2025-06-20 22:19] LABS: C-Reactive Protein < 0.50 mg/dL (<or=0.5)
== END 2025-06-20 13:57 | disposition home or self-care (01) ==
LOC: NCHCN 13:56
PROVIDERS: PCP Family Medicine; Visit Provider Family Medicine
DX: M19.29 Secondary osteoarthritis, other specified site (principal)
CPT/HCPCS: 85652; 86200; 85025; 86140; 86431